=== PATIENT | female | born 1970 | race Caucasian/White ===

== ENCOUNTER → 2017-12-18 12:07 | Outpatient (CLI) | payer OTHER, SELFPAY ==
--- NOTE | 2017-12-18 11:16 | BI_ITS ---
MAMMOGRAPHY - BILATERAL SCREENING REASON FOR EXAM: Female, 47 years old. Routine annual screening examination. PERTINENT HISTORY: FAM HX 2 MAT AUNTS AGES 50S, MOTHER AGE 72 OPEN HEART SX AGE 27 P/H MASTITIS 14 YRS AGO LT BREAST TECHNIQUE: Digital bilateral breast girish (3D mammographic acquisition) in the CC and MLO projections. 2-D mediolateral oblique (MLO) and craniocaudad (CC) views of both breasts were obtained. CAD: Full Field Digital Mammography with Computer Added Detection was performed. COMPARISON: 11/29/2016, 11/20/2015, 11/07/2014 FINDINGS: Breast Composition: The breasts are heterogeneously dense, which may obscure small masses. There are no dominant masses or suspicious calcifications. No other significant abnormalities are identified. BI/SCREENING MAMM (CAD), BILAT IMPRESSION: Stable bilateral screening mammogram. Yearly follow-up mammogram recommended. (A) ASSESSMENT CATEGORY: BIRADS Category 2: Benign. A letter regarding these results will be sent to the patient by the facility within 30 days. Approximately 10% of breast cancers are not detected by mammography. A normal mammogram should not delay biopsy of a clinically suspicious abnormality. [id number] Electronically Signed: Qiana Caicedo MD at 13:45 EDT Tel , Service support ,
--- NOTE | 2017-12-18 12:07 | DT_ITS ---
This patient was seen during an EMR downtime December 14, 2017 - December 21, 2017. This patient may have a combination of paper and electronic documentation or all paper documentation. All documentation is viewable within the e-chart portion of [email or web address] for each patient visit.
== END ==
PROVIDERS: PCP Internal Medicine; Visit Provider Internal Medicine
DX: Z12.31 Encounter for screening mammogram for malignant neoplasm of breast (principal)
CPT/HCPCS: 77063; 77067

== ENCOUNTER → 2018-06-01 11:30 | Outpatient (CLI) | payer OTHER, SELFPAY ==
[2018-06-04 08:37] LABS: HPV Reflexed? NOT INDICATED
== END ==
PROVIDERS: Family Provider Internal Medicine; PCP Internal Medicine; Referring Provider Obstetrics & Gynecology; Visit Provider Obstetrics & Gynecology
DX: Z12.4 Encounter for screening for malignant neoplasm of cervix (principal)
CPT/HCPCS: 88175; G0145

== ENCOUNTER → 2018-10-19 | Outpatient (CLI) | payer OTHER, SELFPAY ==
--- NOTE | 2018-10-19 13:01 | RAD_ITS ---
STUDY: X-RAY - RIGHT ELBOW REASON FOR EXAM: Female, 48 years old. Increasing elbow pain. Possible tendinitis. TECHNIQUE: 3 view(s) of the elbow. COMPARISON: None. FINDINGS: Normal visualized humerus, radius and ulna. Normal radiocapitellar and ulnotrochlear articulations. The soft tissue structures are unremarkable. RAD/Elbow min 3 Views IMPRESSION: Normal x-ray examination of the elbow. Electronically Signed: Alexei Joya, at 13:06 EDT , Service support ,
== END | disposition home or self-care (01) ==
LOC: HPRAD 13:01
PROVIDERS: Family Provider Internal Medicine; PCP Internal Medicine; Referring Provider Orthopaedic Surgery; Visit Provider Orthopaedic Surgery
DX: M25.521 Pain in right elbow (principal)
CPT/HCPCS: 73080

== ENCOUNTER → 2018-12-31 | Outpatient (CLI) | payer OTHER, SELFPAY ==
--- NOTE | 2018-12-31 11:04 | BI_ITS ---
MAMMOGRAPHY - BILATERAL SCREENING 3-D TOMOSYNTHESIS REASON FOR EXAM: Female, 48 years old. Bilateral Screening 3-D tomosynthesis PERTINENT HISTORY: No significant family history. TECHNIQUE: 2-D mammograms and 3-D Tomosynthesis of the breast (s) were performed. CAD was performed. COMPARISON: Was made to the previous examinations the largest is dated December 18, 2017. FINDINGS: The breast composition is of scattered fibroglandular tissue. No evidence of spiculated lesion, microcalcifications, skin thickening or nipple retraction. Multiple benign-appearing lymph nodes in the axillary areas bilaterally. There has been no significant change since the prior study. BI/SCREEN MAMM (CAD) W/JOSUE BILAT IMPRESSION: No mammographic signs of malignancy. Routine yearly mammograms recommended. ASSESSMENT CATEGORY: BIRADS Category 1: Negative. A letter regarding these results will be sent to the patient by the facility within 30 days. FOLLOW UP RECOMMENDATION: Yearly follow up mammogram recommended. (A) Approximately 10% of breast cancers are not detected by mammography. A normal mammogram should not delay biopsy of a clinically suspicious abnormality. Electronically Signed: Flor Aguilar, at 16:19 EDT Tel , Service support ,
== END | disposition home or self-care (01) ==
LOC: OPBI 11:03
PROVIDERS: Family Provider Internal Medicine; PCP Internal Medicine; Referring Provider Internal Medicine; Visit Provider Internal Medicine
DX: Z12.31 Encounter for screening mammogram for malignant neoplasm of breast (principal)
CPT/HCPCS: 77063; 77067

== ENCOUNTER → 2019-04-22 09:38 | Outpatient (CLI) | payer OTHER, SELFPAY ==
--- NOTE | 2019-04-22 09:39 | RAD_ITS ---
STUDY: X-RAY - RIGHT WRIST REASON FOR EXAM: Female, 48 years old. Wrist injury. Pain. TECHNIQUE: 3 view(s) of the wrist were obtained. COMPARISON: February 06, 2015 FINDINGS: Stable mild generalized osteopenia. Deformity of the distal radius and prior ulnar styloid fracture, unchanged. Mild loss of articular cartilage of the radiocarpal articulation. Normal distal radioulnar articulation. Normal carpal bones. Stable loss of articular cartilage of the radial carpal row. Osteoarthrosis of the first CMC joint, slightly progressed since the prior study. Normal second through fifth carpometacarpal articulations. Normal visualized metacarpal bones. The soft tissue structures are unremarkable. RAD/Wrist min 3 Views IMPRESSION: Osteopenia with healed distal radial and ulnar abnormalities unchanged. Osteoarthrosis as described. Electronically Signed: Jose Francisco Lynne MD at 12:11 EDT , Service support ,
== END ==
PROVIDERS: Family Provider Internal Medicine; PCP Internal Medicine; Referring Provider Orthopaedic Surgery; Visit Provider Orthopaedic Surgery
DX: M25.531 Pain in right wrist (principal)
CPT/HCPCS: 73110

== ENCOUNTER → 2019-04-27 07:29 | Outpatient (CLI) | payer OTHER, SELFPAY ==
--- NOTE | 2019-04-27 07:32 | MRI_ITS ---
STUDY: MRI RIGHT ELBOW REASON FOR EXAM: Right elbow and forearm pain for about a year. TECHNIQUE: Standardized fat and water weighted pulse sequences were obtained in all 3 orthogonal planes. COMPARISON: Radiographs 10/19/2018. FINDINGS: Normal radio-capitellum articulation. Normal radial collateral ligamentous complex. There is peritendinitis, tendinosis and undersurface partial tear of the common extensor tendon measuring approximately 1 cm in length (inversion recovery coronal images 12, 13). Normal ulnotrochlear articulation. Normal ulnar collateral ligamentous complex. Normal common flexor tendon. The cubital tunnel is normal, with a normal ulnar nerve. Normal biceps tendon and distal insertion. Normal lacertus fibrosis. Normal brachialis musculotendinous insertion. Normal triceps tendon and teno-osseous insertion. Normal olecranon process. The visualized distal humerus, proximal radius, and ulna are normal. The visualized muscles of the distal arm and proximal forearm are normal. There is edema in the radial subcutis adipose space. MRI/Upper Ext Joint Only(Routine) IMPRESSION: Lateral epicondylitis with undersurface partial tear of the common extensor tendon. Electronically Signed: Real Bui MD at 9:10 EDT Tel , Service support ,
== END ==
PROVIDERS: Family Provider Internal Medicine; PCP Internal Medicine; Referring Provider Orthopaedic Surgery; Visit Provider Orthopaedic Surgery
DX: M77.11 Lateral epicondylitis, right elbow (principal)
CPT/HCPCS: 73221

== ENCOUNTER 2019-05-27 06:21 | Day surgery (SDC) | payer OTHER, SELFPAY ==
--- NOTE | 2019-05-17 12:57 | HP_ITS ---
Intake Intake Visit Reasons: Right Arm Allergies No Known Allergies Allergy (Verified 11/17/15 08:21) Medications traZODone [Desyrel] 50 mg PO QHS 07/27/13 [History Confirmed 05/17/19] Metronidazole [Metrocream] 45 gm TP DAILY 07/04/15 [History Confirmed 05/17/19] Restasis Ophthalmic 1 drp EACH EYE BID 07/04/15 [History Confirmed 05/17/19] PFSH Social History (Updated 05/17/19 @ 12:57 by Marily Cavazos DO) Smoking Status: Never smoker HPI Right Arm: Surgical H&P: Yes Details: Parts of this documentation were recorded by a scribe, this documentation accurately reflects the service provided and the decisions made by me, Marily Cavazos DO 05/17/19 1049. JESUS UMANZOR is a 48 year old F here today for right tennis elbow. Patient states that she wishes to have surgery today for her right tennis elbow. Denies numbness, tingling or other associated symptoms. Denies any changes in medications. pain localized to lateral elbow worse iwth extending wrist, was better with injections, now getting worse with adls. otc nsaids as needed. ROS Musc Reports as per HPI Skin/Breast Reports system reviewed and no additional complaints, except as docu, Reports as per [facility] Neuro Yes system reviewed and no additional complaints, except as docu Ortho Exam Right Elbow ROM: Yes Flexion 0-140 Test: Yes TTP Medial Epicondyle, Yes Pain w/ resist wrist ext, Yes Pain w/ resist 3rd dig ext Sensation: Radial: I, Ulnar: I, Median: I Motor: Elbow Extension: 5, Elbow Flexion: 5, EPL: 5, FDP-2: 5, 1st Dorsal Interosseous: 5 Assessment & Plan Problems 1. Right lateral epicondylitis M77.11 Plan Reviewed the pre-operative plans with the patient. Risks and benefits of the procedure were fully explained, including but not limited to infection, neurovascular injury, continued pain, arthritis, stiffness, need for further surgery, re-injury, DVT, PE, general risks of anesthesia, and loss of limb or life. The patient understands all the risks and does wish to proceed with written consent. Discussed possible post op restrictions and limitations based on the depth of surgery. Follow up post op or sooner if pain, swelling, numbness or associated symptoms, or concerns develop. All questions answered. Patient in agreement of plan. Coding Level of Care Code Off vis,est,level 4 Diagnoses Right lateral epicondylitis M77.11 05/17/19 1257 <Electronically signed by Marily sanchez DO> Date _ Marily Cavazos DO
[2019-05-27] VITALS (10 sets, daily range): BP systolic 97–138; BP diastolic 53–85; PULSE 59–72; RESP 14–16; TEMP 36.2–37.5; O2SAT 96–100; BMI 22.1
[2019-05-27] MEDS: Lactated Ringers 1,000 ML 100 ML IV ×2 (06:47→07:48)
--- NOTE | 2019-05-27 06:52 | PCM.HP.STD ---
Problem List (1) Screening for intestinal cancer Status: Acute History of Present Illness Date of Admission: 05/27/19 The patient is a 48 year old F who presents for a screening colonoscopy. He has never had a previous colonoscopy. She states that a paternal grandfather had colon cancer in his 70s. She thinks that both of her parents have have colon polyps. Her only surgery was an ASD repair at approximately age 25. She otherwise enjoys good health. She denies bright red blood per rectum or melena. No abdominal pain. No weight change. She has had no history of DVT. She does have a history of getting nauseated with narcotics. She states that if she is pretreated with a scopolamine patch and Zofran that she previously performed well with a NovaSure procedure. Past Medical History Allergies No Known Allergies Allergy (Verified 05/26/19 09:52) Home Medications: Ambulatory Orders Medication Instructions Recorded traZODone [Desyrel] 50 mg PO QHS 07/27/13 Metronidazole [Metrocream] 45 gm TP DAILY 07/04/15 Restasis Ophthalmic 1 drp EACH EYE BID 07/04/15 Smoking Status: Never smoker Tobacco Use: Non-smoker Review of Systems Constitutional: Denies: Anorexia Cardiovascular: Denies: Chest Pain Respiratory: Denies: Cough Gastrointestinal: Denies: Abdominal Pain VTE Information - Inpt Only VTE Present on Admission: No Patient Problems: Active and Suspected Problems Screening for intestinal cancer (Acute) - Physical Exam Vitals/I&O's: Vital Signs Temp Pulse Resp BP Pulse Ox 97.7 F L 70 16 120/60 96 05/27/19 06:38 05/27/19 06:38 05/27/19 06:38 05/27/19 06:38 05/27/19 06:38 Oxygen Delivery Method Room Air Weight: 137 lb 9.6 oz Body Mass Index (BMI) 22.1 General: Alert, Oriented x3, Cooperative, No apparent distress HEENT: Atraumatic Oral: Moist Mucosa Lungs: Clear to auscultation, Normal air movement Cardiovascular: Regular rate, Regular Rhythm Abdomen: Bowel Sounds Present, Soft, Non Tender Extremities: No Calf Tenderness Psych/Mental Status: Normal Affect Current Medications Lactated Ringer's () 1,000 mls @ 100 mls/hr IV .Q10H ONE Stop: 05/27/19 16:49 Assessment/Plan All Active Problems Screening for intestinal cancer (Acute) The patient presents via open access program to proceed with a screening colonoscopy with possible biopsy or polypectomy is indicated. She is aware of the technique, benefits, risks, alternatives. We will proceed as noted. We will try to provide anti-medic medication pre-intervention. Stephan Garcia M.D., F.A.C.S.
[2019-05-27] MEDS: Scopolamine 1mg/72hr Patch 1 PATCH TD (07:15)
--- NOTE | 2019-05-27 07:39 | OP.COLON_ITS ---
Patient Name: Lauryn Armando Procedure Date: 05/27/2019 6:55 AM Date of : 1970 Age: 48 Procedure: Colonoscopy Indications: Screening for colorectal malignant neoplasm Providers: Stephan Garcia MD Referring MD: Carole Pettit Medicines: Midazolam 6.5 mg IV, Meperidine 50 mg IV, Ondansetron 4 mg IV, Diphenhydramine 50 mg IV, scopolamine patch Patient Profile: Last Colonoscopy: none. The patient's first colonoscopy is today. Complications: No immediate complications. Procedure: Pre-Anesthesia Assessment: - Prior to the procedure, a History and Physical was performed, and patient medications and allergies were reviewed. The patient's tolerance of previous anesthesia was also reviewed. The risks and benefits of the procedure and the sedation options and risks were discussed with the patient. All questions were answered, and informed consent was obtained. Prior Anticoagulants: The patient has taken no previous anticoagulant or antiplatelet agents. ASA Grade Assessment: II - A patient with mild systemic disease. After reviewing the risks and benefits, the patient was deemed in satisfactory condition to undergo the procedure. After I obtained informed consent, the scope was passed under direct vision. Throughout the procedure, the patient's blood pressure, pulse, and oxygen saturations were monitored continuously. The Colonoscope was introduced through the anus and advanced to the cecum, identified by appendiceal orifice and ileocecal valve. The colonoscopy was unusually difficult due to a tortuous colon. Successful completion of the procedure was aided by increasing the dose of sedation medication. The patient tolerated the procedure well. The quality of the bowel preparation was excellent. The ileocecal valve was photographed. Moderate Sedation: Moderate (conscious) sedation was personally administered by the endoscopist. The following parameters were monitored: oxygen saturation, heart rate, blood pressure, and response to care. Total physician intraservice time was 17 minutes. Scope In: 7:10:00 AM Scope Withdrawal Time 0 hours 8 minutes 16 seconds Scope Out: 7:34:07 AM Total Procedure Duration Time 0 hours 24 minutes 7 seconds Findings: The perianal and digital rectal examinations were normal. The colon (entire examined portion) was significantly tortuous. Advancing the scope required changing the patient to a supine position and using manual pressure. The exam was otherwise without abnormality. Impression: - Tortuous colon. - The examination was otherwise normal. - No specimens collected. Recommendation: - Discharge patient to home. - Resume previous diet. - Continue present medications. - Repeat colonoscopy in 10 years for screening purposes. Procedure Code(s): --- Professional --- 17330, Colonoscopy, flexible; diagnostic, including collection of specimen(s) by brushing or washing, when performed (separate procedure) 05351, 59, Moderate sedation services provided by the same physician or other qualified health home health care coordinator performing the diagnostic or therapeutic service that the sedation supports, requiring the presence of an independent trained observer to assist in the monitoring of the patient's level of consciousness and physiological status; initial 15 minutes of intraservice time, patient age 5 years or older Diagnosis Code(s): --- Professional --- Z12.11, Encounter for screening for malignant neoplasm of colon Q43.8, Other specified congenital malformations of intestine CPT copyright 2017 [employer]. All rights reserved. The codes documented in this report are preliminary and upon high school foreign language tutor review may be revised to meet current compliance requirements. Stephan Garcia MD 05/27/2019 7:39:23 AM This report has been signed electronically. Number of Addenda: 0 Note Initiated On: 05/27/2019 6:55 AM
== END 2019-05-27 08:51 | disposition home or self-care (01) ==
LOC: EN 06:22 → AC 06:23
PROVIDERS: Family Provider Internal Medicine; PCP Internal Medicine; Referring Provider Internal Medicine; Visit Provider Surgery
PROC: 0DJD8ZZ Inspection of Lower Intestinal Tract, Via Natural or Artificial Opening Endoscopic (ICD-10-PCS; CPT 45378; principal; 2019-05-27 06:55)
DX: Z12.11 Encounter for screening for malignant neoplasm of colon (principal); Q43.8 Other specified congenital malformations of intestine; Z80.0 Family history of malignant neoplasm of digestive organs
CPT/HCPCS: 45378; 99152; 99153; J7120; J2405

== ENCOUNTER 2019-06-15 12:08 | Day surgery (SDC) | payer OTHER, SELFPAY ==
--- NOTE | 2019-05-17 12:57 | HP_ITS ---
I have re-examined the patient. There are no clinical changes since date of exam. Intake Intake Visit Reasons: Right Arm Allergies No Known Allergies Allergy (Verified 11/17/15 08:21) Medications traZODone [Desyrel] 50 mg PO QHS 07/27/13 [History Confirmed 05/17/19] Metronidazole [Metrocream] 45 gm TP DAILY 07/04/15 [History Confirmed 05/17/19] Restasis Ophthalmic 1 drp EACH EYE BID 07/04/15 [History Confirmed 05/17/19] PFSH Social History (Updated 05/17/19 @ 12:57 by Marily Cavazos DO) Smoking Status: Never smoker HPI Right Arm: Surgical H&P: Yes Details: Parts of this documentation were recorded by a scribe, this documentation accurately reflects the service provided and the decisions made by me, Marily Cavazos DO 05/17/19 1049. JESUS UMANZOR is a 48 year old F here today for right tennis elbow. Patient states that she wishes to have surgery today for her right tennis elbow. Denies numbness, tingling or other associated symptoms. Denies any changes in medications. pain localized to lateral elbow worse iwth extending wrist, was better with injections, now getting worse with adls. otc nsaids as needed. ROS Musc Reports as per [facility] Skin/Breast Reports system reviewed and no additional complaints, except as docu, Reports as per [facility] Neuro Yes system reviewed and no additional complaints, except as docu Ortho Exam Right Elbow ROM: Yes Flexion 0-140 Test: Yes TTP Medial Epicondyle, Yes Pain w/ resist wrist ext, Yes Pain w/ resist 3rd dig ext Sensation: Radial: I, Ulnar: I, Median: I Motor: Elbow Extension: 5, Elbow Flexion: 5, EPL: 5, FDP-2: 5, 1st Dorsal Interosseous: 5 No rales rhonchi wheezing, no about abdominal pain, no audible bruits Assessment & Plan Problems 1. Right lateral epicondylitis M77.11 Plan Reviewed the pre-operative plans with the patient. Risks and benefits of the procedure were fully explained, including but not limited to infection, neurovascular injury, continued pain, arthritis, stiffness, need for further surgery, re-injury, DVT, PE, general risks of anesthesia, and loss of limb or life. The patient understands all the risks and does wish to proceed with written consent. Discussed possible post op restrictions and limitations based on the depth of surgery. Follow up post op or sooner if pain, swelling, numbness or associated symptoms, or concerns develop. All questions answered. Patient in agreement of plan. Coding Level of Care Code Off vis,est,level 4 Diagnoses Right lateral epicondylitis M77.11 05/17/19 1257 <Electronically signed by Marily sanchez DO> Date _ Marily Cavazos DO
[2019-05-27 06:38] VITALS: BMI 22.1
[2019-06-15 12:29] VITALS: BP 109/64; PULSE 72; RESP 16; TEMP 36.7; O2SAT 98; BMI 22.2
[2019-06-15] MEDS: Lactated Ringers 1,000 ML 100 ML IV (12:52)
--- NOTE | 2019-06-15 13:20 | TESH_PTH ---
PATIENT: JESUS UMANZOR LOC: [facility] [place] U#:[id number] AGE/SX: 48/F ROOM: RE06/15/[address]: Dr. Marily Cavazos DO : 1970 BED: DIS: 06/15/2019 SPEC #: [id number] RECD: 06/16/19 08:36 STATUS: RAFFAELE BETHANY #: [id number] GAGE: 06/15/19 13:[address]: Marily Cavazos DEPT: SURGICAL PATHOLOGY RECD BY: Ruddy Alves ENTERED: 06/16/19 10:42 SP TYPE: TENDON OTHR DR: Dr. Carole Pettit, Tissues: Tendon and tendon sheath, NOS Procedures: Surgery Specimen Level III HEADER OPERATION: Release, lateral epicondyle, ECRB repair PRE-OP DIAGNOSIS: Right lateral epicondylitis M77.11 TISSUE SUBMITTED: ECRB tendon, right MICROSCOPIC DIAGNOSIS ECRB tendon, right: Fragments of dense fibroconnective tissue with reactive changes. SJ:leon 06/17/19 MICROSCOPIC DESCRIPTION Slides are reviewed. GROSS DESCRIPTION Received in fixative is one container labeled with the patient's name and designated right tendon. The specimen consists of multiple irregular fragments of light martinez tissue submitted on bluish stained gauze. The specimen in aggregate measures 1 x 0.5 x 0.1 cm. The specimen is totally submitted in one cassette. / AM:leon 06/16/19 TC:5 CPT: 57567
--- NOTE | 2019-06-15 15:44 | DCINST_ITS ---
Discharge Diet: No Restrictions - Leave dressing intact, follow-up in 2 weeks for dressing removal and initiation of physical therapy occupational therapy if necessary, take prescriptions as indicated, call with increased pain numbness tingling or further issues arise Discharge Activity: May Not Drive May shower in (days): 1 Ice area for (Minutes): 20 - Every hour while awake. Weight Bearing Status: Weight bearing as tolerated Keep extremity elevated above heart level: Operative Extremity Call your doctor if your incision/area has: Continuous Slow Oozing, Sudden Increased Bleeding, Increased Pain/ Swelling, Increased Redness, Foul Smelling Discharge Call your doctor if you observe: Fever of 101 or Higher, Coldness, Increased Pain, Numbness or Tingling, Change in Color, Calf discomfort Allergies/Adverse Reactions: Allergies No Known Allergies Allergy (Verified 05/26/19 09:52) Medications to take at Discharge traZODone [Desyrel] 50 mg PO QHS 07/27/13 Metronidazole [Metrocream] 45 gm TP DAILY 07/04/15 Restasis Ophthalmic 1 drp EACH EYE BID 07/04/15 Primary Care Physician: Carole Pettit DO [Primary Care Provider] - Test Results: Test results from this visit will be discussed in further detail at your follow- up appointment, if applicable. Please Follow Up With: Marily Cavazos DO - [phone]
--- NOTE | 2019-06-15 15:44 | PCM.OPRPT ---
Report of Operation Date of Procedure: 06/15/19 Pre-Operative Diagnosis: right lateral epicondylitis Post-Operative Diagnosis: same Surgery/Procedure Performed:: right lateral epicondylar debridement/ecrb repair Type of Anesthesia:: General Anesthesiologist: Jaya Dai Estimated Blood Loss (mL): min Fluids Replaced: 800cc lr Description of Procedure: Preop note Patient is a 48-year-old female well-known to me in clinic. Patient has continued right lateral elbow pain and is recalcitrant to conservative treatment. MRI confirms a high-grade partial tear of her extensor tendons. Risk benefits alternatives surgery discussed with patient. Risk including but not limited to blood loss, blood clot, infection, neurovascular, failure procedure, loss of life and loss of limb. Patient is aware like proceed with right lateral epicondyle debridement possible ECRB repair. Operative note Patient seen and examined preop holding area. Right elbow was marked. Patient brought to the operating placed supine the operating table. Signed, anesthesia, antibiotics were administered the right arm was prepped and draped in usual sterile fashion with tract around her upper arm. All bony prominences well-padded SCDs placed on her left bilateral lower extremity. We then marked our incision right over the lateral epicondyle in an oblique fashion. Right arm is an elevated segmented tourniquet which it was rates her pressure of 250 torr. Timeout was performed. We then used a 15 blade to cut the skin dissected down to the sternum to the extensor tendon mass we split the ECU and ECRL tendons longitudinally dissected down into the ECRB underneath which was grayish in color we removed part of the ECRB tendon and sent it to pathology for further evaluation. We also debrided more tendon around the area that was grayish we then palpated the lateral condyle multiple times throughout the case as well as the radial head to ensure that we did not approach to far distally. All neurovascular structures were protected at all times. We then rasped the lateral epicondyle used 4 5 K wire to bleed and into drill into the bone for bleeding and then placed a knotless fiber tack Arthrex and then oversewed the tendon down to bone in standard technique. We then irrigated the incision with copious muscle sterile saline. We oversew the repair with 2-0 Vicryl subcutaneous tissue with 3-0 Vicryl and skin with 3-0 Vicryl and a running 4-0 Monocryl. Sterile dressings and a posterior splint at 90 degrees were applied. Patient tolerated procedure well no complication transferred recovery room in stable con condition Postoperative Nonweightbearing right upper extremity Call with increased pain numbness tingling further issues arise Follow-up in 2 weeks This note was generated with [employer] dictation software. It may contain incorrect words, spelling, and punctuation that were not noted in checking the note before signing. Grafts/Implants Used: Arthrex fiber tack
[2019-06-15] MEDS: Cefazolin 2 GM in 0.9% Normal Saline 100 ML IV (16:10)
[2019-06-15] MEDS: Mupirocin Ointment 22gm Tube 1 APPLIC (17:00)
[2019-06-15] MEDS: Bupivacaine Mpf 0.5% 30 ML VIAL (17:18)
[2019-06-15 17:36] VITALS: BP 109/64; BP 148/81; PULSE 62; RESP 16; TEMP 36.8; O2SAT 99
[2019-06-15 17:45] VITALS: BP 109/64; BP 139/72; PULSE 60; RESP 16; O2SAT 100
[2019-06-15 18:00] VITALS: BP 109/64; BP 155/86; PULSE 60; RESP 16; O2SAT 98
[2019-06-15 18:05] VITALS: BP 109/64; BP 143/80; PULSE 55; RESP 16; TEMP 37; O2SAT 100
[2019-06-15 19:10] VITALS: BP 109/64
== END 2019-06-15 19:22 | disposition home or self-care (01) ==
LOC: SDC 12:09 → AC 12:10
PROVIDERS: Family Provider Internal Medicine; PCP Internal Medicine; Referring Provider Orthopaedic Surgery; Visit Provider Orthopaedic Surgery
PROC: (CPT 24357; principal; 2019-06-15 13:05)
DX: M77.11 Lateral epicondylitis, right elbow (principal); Z85.828 Personal history of other malignant neoplasm of skin
CPT/HCPCS: 01710; 24357; 88304; C1713; J7120; J2405

== ENCOUNTER → 2019-06-20 13:51 | Outpatient (CLI) | payer OTHER, SELFPAY ==
[2019-06-15 12:29] VITALS: BMI 22.2
[2019-06-23 12:07] LABS: Age Gdln ACOG Testing 30-65 (.)
[2019-06-23 15:46] LABS: HPV APTIMA, High Risk Negative (Negative); HPV Reflexed? NOT INDICATED
== END ==
PROVIDERS: Visit Provider Obstetrics & Gynecology
DX: Z12.4 Encounter for screening for malignant neoplasm of cervix (principal)
CPT/HCPCS: 88175; G0145

== ENCOUNTER 2019-08-22 17:00 | Outpatient (RCR) | payer OTHER, SELFPAY ==
[2019-07-26 10:24] VITALS: BMI 22.2
--- NOTE | 2019-08-03 09:12 | HP.OTEVAL ---
Patient's Visit Information JESUS UMANZOR is a 48 year old F, referred to Occupational Therapy by Marily Cavazos DO, with a diagnosis of right lateral epi. Date of Evaluation: 08/02/19 Occupational Therapist: Anyi Oreilly, TAMIA/Izabella, CHT - Subjective Subjective: This 48 year old female was seen for OT eval with dx of right lateral epi. Pt is 6 week post op right lateral epicondylar debridement/ecrb repair. States that she is still having pain with writing and using the computer. She has the pain over her lateral epicondyle. She has been working on some light ROM but is still limited with full elbow ext. Pt reports she does workout but has been careful not to irritate her elbow. pt is unsure is she was limited prior to sx because of her dx before sx. - ADLs Miscellaneous: Write, Use computer keyboard Comments: use mouse - Pain right UE 0 Pain Intensity Range: 3 - ROM Elbow: right -20/ 145 left 0/145 Forearm: right/left WNL - Strength Auto Glass Worker: right 45# left 60# right elbow ext 5# left 65# Lateral Pinch: right 12# left 12# no pain Tripod Pinch: right 12# left 12# no pain Strength Comments: right elbow pain with resistive exceptional student education teacher strenght with shoulder at 90 and elbow ext. pt reports pain is mostly with grabbing something in front of her (reaching out) and typing. - Sensation Sensation Comments: denies - Quick DASH-Disab of Arm,Shoulder& Hand Quick DASH Score: 40.0000 - Tennis Elbow Tennis Elbow Score: 50 - Goals Goal:100% adherence to protocol: Yes Comment: lateral epicondylar debridement/ecrb repair protocol Goal:Daily scar massage when approriate: Yes Goal:ROM equal to unaffected hand: Yes Goal:Auto Glass Worker/Pinch strength at least 75% of unaffected hand: Yes Goal:No pain with affected hand use: Yes Goal:Full use of affected hand in daily activities including: Yes Goal:Decrease scar hypersensitivity: Yes - Rehabilitation General Assessment: Pt is 6 week post op right lateral epicondylar debridement/ecrb repair, demo limited ROM and strength decreasing her IND with ADLS and IADLS. Pt would benefit from skilled OT services 1x week for 3 weeks to return pt to PLOF. Today therapist ed. pt on PROM to gain increase in elbow ext., scar mtg and desensitization, exercise erog. work station ergo. Therapist provided ex. handout pt demo understanding and agree to POC. Rehabilitation Potential: Good - Anticipated Interventions Anticipated Interventions: A/AAROM/PROM, Strengthening, Scar Care, Triggerpoint Release, Desensitization, Modalities, Joint Protection/Energy Conservation, Ergonomic Education - Visit Plan Frequency: 1x/Week Duration: 3 Weeks TEXT: Thank you for the opportunity to evaluate your patient. For Medicare and Medicare HMO plans, please review the plan of care and approve it. It will need to be FAXED BACK to us at [phone] for Medicare purposes. Please let me know if there are questions or concerns regarding this plan of care. Physician Signature: Date:
--- NOTE | 2019-11-19 09:19 | HP.OTDCSUM ---
It has been my pleasure to treat JESUS UMANZOR under orders from Dr. Marily Cavazos DO, for the diagnosis of right lateral epi for a total of 4 visit(s). Please see the following information for a summary of their discharge status. % Improvement: 80 Objective/Function: pt was seen for elbow ext -10. pt demo with full flex- states pulling around incision but nothing intolerable- Therapist ed. pt on lifting ergonomics to prevent strain on elbow- pt demo understanding and returned to her exercises. pt was reporting IND. with ADLs and IADLs. pt was last seen 08/22/19 and due to time lapse in services pt is D/C at this time. Patient Goals: Regain Mobility, Regain Strength, Decrease Pain Goal:100% adherence to protocol: Yes Goal:Daily scar massage when approriate: Yes Goal:ROM equal to unaffected hand: Yes Goal:Coordinator Integrated Marketing/Pinch strength at least 75% of unaffected hand: Yes Goal:No pain with affected hand use: Yes Goal:Full use of affected hand in daily activities including: Yes Goal:Decrease scar hypersensitivity: Yes Plan: cont with US- PLLS and end range stretch If there are questions or concerns regarding this patient's occupational therapy, please fell free to call me at [phone]. Thank you for the referral of this patient. Sincerely, Anyi Oreilly, OTR/L, CHT
== END 2019-08-22 19:00 | disposition home or self-care (01) ==
LOC: OT 17:00
PROVIDERS: Referring Provider Orthopaedic Surgery; Visit Provider Orthopaedic Surgery
DX: Z98.890 Other specified postprocedural states (principal)
CPT/HCPCS: 97035; 97110; 97140; 97165; 97166

== ENCOUNTER → 2020-01-23 11:05 | Outpatient (CLI) | payer OTHER, SELFPAY ==
[2019-07-26 10:24] VITALS: BMI 22.2
--- NOTE | 2020-01-23 11:08 | BI_ITS ---
MAMMOGRAPHY - BILATERAL SCREENING REASON FOR EXAM: Female, 49 years old. Routine annual screening examination. PERTINENT HISTORY: Mother with breast cancer. Aunts with breast cancer. TECHNIQUE: Digital bilateral breast josue (3D mammographic acquisition) in the CC and MLO projections. 2-D mediolateral oblique (MLO) and craniocaudad (CC) views of both breasts were obtained. CAD: Full Field Digital Mammography with Computer Added Detection was performed. COMPARISON: Comparison is made with prior study dated December 31, 2018 and December 18, 2017. FINDINGS: Breast Composition: The breasts are heterogeneously dense, which may obscure small masses. There are no dominant masses or suspicious calcifications. Stable small benign-appearing bilateral axillary lymph. No other significant abnormalities are identified. There has been no significant change since the prior study. BI/SCREEN MAMM (CAD) W/JOSUE BILAT IMPRESSION: Stable bilateral screening mammogram. Yearly follow-up mammogram recommended. (A) ASSESSMENT CATEGORY: BIRADS Category 2: Benign. A letter regarding these results will be sent to the patient by the facility within 30 days. Approximately 10% of breast cancers are not detected by mammography. A normal mammogram should not delay biopsy of a clinically suspicious abnormality. [id number] Electronically Signed: Alexei Joya, at 12:09 EDT , Service support ,
== END ==
PROVIDERS: PCP Internal Medicine; Referring Provider Internal Medicine; Visit Provider Internal Medicine
DX: Z12.31 Encounter for screening mammogram for malignant neoplasm of breast (principal)
CPT/HCPCS: 77063; 77067

== ENCOUNTER → 2020-06-26 | Outpatient (CLI) | payer OTHER, SELFPAY ==
[2019-07-26 10:24] VITALS: BMI 22.2
[2020-06-28 10:51] LABS: HPV Reflexed? NOT INDICATED
== END | disposition home or self-care (01) ==
LOC: LABSPEC 13:09
PROVIDERS: PCP Internal Medicine; Visit Provider Student in an Organized Health Care Education/Training Program
DX: Z12.4 Encounter for screening for malignant neoplasm of cervix (principal)
CPT/HCPCS: 88175; G0145

== ENCOUNTER 2020-07-10 10:45 | Outpatient (RCR) | payer OTHER, SELFPAY ==
[2019-07-26 10:24] VITALS: BMI 22.2
--- NOTE | 2019-08-24 06:51 | MASS.EVAL ---
Massage Therapy Evaluation: Initial Evaluation Date: 08/23/2019 /Age: 02 1970, 49 Diagnosis: Neck muscle strain Goals: Decrease pain and tension through neck and shoulders Improve sleep Assessment: Lauryn is a good candidate for massage at this time. We have had success treating her symptoms in the past. Plan: To be seen one time per month or PRN for a total of 10 one hour sessions.
--- NOTE | 2020-07-10 18:49 | MASS.DISCH ---
Massage Therapy Discharge Summary: Discharge Date: 07/10/2020 Lauryn was seen for a massotherapy evaluation on 08/23/2019 with the diagnosis of neck muscle strain. She was treated with seven sessions of massage therapy consisting of deep pressure soft tissue techniques, myofascial release and trigger point compression to her cervical, thoracic, lower back, lower extremities and hips. Lauryn responded well to the therapy by reporting decreased tension and pain throughout her neck, shoulders, lower back and hips. Her goals for therapy were met throughout the treatment sessions. At this time this patient is being discharged from our care at [facility] facility.
== END 2020-07-10 19:00 | disposition home or self-care (01) ==
LOC: MASS 10:45
PROVIDERS: Referring Provider Internal Medicine; Visit Provider Internal Medicine
DX: S16.1XXD Strain of muscle, fascia and tendon at neck level, subsequent encounter (principal)
CPT/HCPCS: 97124

== ENCOUNTER → 2021-02-12 11:42 | Outpatient (CLI) | payer OTHER, SELFPAY ==
[2019-07-26 10:24] VITALS: BMI 22.2
--- NOTE | 2021-02-12 11:45 | BI_ITS ---
MAMMOGRAPHY - BILATERAL SCREENING REASON FOR EXAM: Female, 50 years old. Routine annual screening examination. PERTINENT HISTORY: TECHNIQUE: Digital bilateral breast josue (3D mammographic acquisition) in the CC and MLO projections. 2-D mediolateral oblique (MLO) and craniocaudad (CC) views of both breasts were obtained. CAD: Full Field Digital Mammography with Computer Added Detection was performed. COMPARISON: None. FINDINGS: Breast Composition: Scattered breast parenchyma is identified There are no dominant masses or suspicious calcifications. No other significant abnormalities are identified. BI/SCRN MAMM (CAD)W/JOSUE BILAT IMPRESSION: Stable bilateral screening mammogram. Yearly follow-up mammogram recommended. (A) ASSESSMENT CATEGORY: BIRADS Category 1: Negative. A letter regarding these results will be sent to the patient by the facility within 30 days. Approximately 10% of breast cancers are not detected by mammography. A normal mammogram should not delay biopsy of a clinically suspicious abnormality. [id number] Electronically Signed: Star Nichols DO at 13:55 EDT Tel , Service support ,
== END ==
PROVIDERS: PCP Internal Medicine; Referring Provider Internal Medicine; Visit Provider Internal Medicine
DX: Z12.31 Encounter for screening mammogram for malignant neoplasm of breast (principal)
CPT/HCPCS: 77063; 77067

== ENCOUNTER → 2021-04-09 12:28 | Outpatient (CLI) | payer OTHER, SELFPAY ==
[2021-04-10 11:08] LABS: HEPATITIS B SURFACE AG Negative (Negative); Hepatitis A IgM Antibody Negative (Negative); Hepatitis B Core AB IgM Negative (Negative)
[2021-04-10 12:33] LABS: Hep C Antibodies <0.1 s/co ratio (0.0-0.9)
== END ==
PROVIDERS: PCP Internal Medicine; Referring Provider Internal Medicine; Visit Provider Internal Medicine
DX: T50.904A Poisoning by unspecified drugs, medicaments and biological substances, undetermined, initial encounter (principal)
CPT/HCPCS: 36415; 80074

== ENCOUNTER 2021-05-20 09:49 | Outpatient (RCR) | payer OTHER, SELFPAY ==
--- NOTE | 2021-05-22 15:09 | MASS.EVAL ---
Massage Therapy Evaluation: Initial Evaluation Date: 05/20/2021 SUBJECTIVE: Lauryn is a 50 year old female who was referred to the [facility] facility for a massotherapy evaluation by Dr. Pettit with the diagnosis of low backache and cervical radiculopathy. She presents today with the symptoms of pain, stiffness and tension in the neck, head, mid back, low back, and hips. Lauryn reports having a past medical history of neck and back pain and complains of radiating pain from her neck into her shoulders. She reports having minimal improvement with exercise and stretching over the last few months. OBJECTIVE: Upon observation Lauryn has poor posture with her head and shoulders forward from the neutral position in sitting and standing. After examination and palpation, I found Lauryn to have high muscle tension with tenderness and myofascial restrictions in her sub occipitals, levator scapulae, trapezius, rhomboids, scalenes, and thoracic paraspinals. Her QL?s, lumbar paraspinals, piriformis, glute medius and minimus all were very tight with fascial restrictions, tender points and trigger points. The first treatment consisted of a one hour massage to her upper body with myofascial release, muscle stripping, trigger point compression techniques, and cervical manual traction. ASSESSMENT: I feel that Lauryn is a good candidate for massotherapy at this time. She had a favorable response to the first treatment with reduction in her muscle aches, pain, and tension. She also had improvement in her cervical flexibility and low back flexibility. PLAN: The plan of care was reviewed with the patient. The patient is to be seen on an as needed basis for a total of ten sessions with the recommendation of once every month for a one hour treatment.
--- NOTE | 2021-07-01 13:13 | MASS.DISCH ---
Massage Therapy Discharge Summary: discharge date 07/01/21 Lauryn was seen on May 20, 2021, with the diagnosis of neck and back pain. She was treated with one session of massage. At this time I am discharging her from our care at [facility].
== END 2021-05-20 19:00 | disposition home or self-care (01) ==
LOC: MASS 09:49
PROVIDERS: PCP Internal Medicine; Referring Provider Internal Medicine; Visit Provider Internal Medicine
DX: M54.12 Radiculopathy, cervical region (principal)
CPT/HCPCS: 97124

== ENCOUNTER 2021-10-07 21:38 | Outpatient (CLI) | payer OTHER, SELFPAY ==
[2021-10-08 08:57] LABS: Hepatitis B Surface Antibody Reactive
[2021-10-09 06:08] LABS: HEPATITIS B SURFACE AG Negative (Negative); Hepatitis A IgM Antibody Negative (Negative); Hepatitis B Core AB IgM Negative (Negative)
[2021-10-09 14:09] LABS: Hep C Antibodies 0.1 s/co ratio (0.0-0.9)
[2021-10-09 14:46] LABS: Hepatitis A AB, Total Positive (Negative)
== END 2021-10-07 23:59 | disposition home or self-care (01) ==
PROVIDERS: PCP Internal Medicine; Visit Provider Internal Medicine
DX: Z01.84 Encounter for antibody response examination (principal)
CPT/HCPCS: 36415; 80074; 86706; 86708

== ENCOUNTER 2021-10-19 15:41 | Outpatient (CLI) | payer OTHER, SELFPAY ==
[2021-10-22 12:18] LABS: Hepatitis B Core Ab Total Negative (Negative)
== END 2021-10-19 23:59 | disposition home or self-care (01) ==
LOC: LAB 15:41
PROVIDERS: PCP Internal Medicine; Visit Provider Internal Medicine
DX: Z11.59 Encounter for screening for other viral diseases (principal)
CPT/HCPCS: 36415; 86704

== ENCOUNTER → 2021-11-13 | Outpatient (CLI) | payer OTHER, SELFPAY ==
[2021-11-18 20:28] LABS: HPV APTIMA, High Risk Negative (Negative)
== END | disposition home or self-care (01) ==
LOC: LABSPEC 12:36
PROVIDERS: PCP Internal Medicine; Visit Provider Obstetrics & Gynecology
DX: Z12.4 Encounter for screening for malignant neoplasm of cervix (principal)
CPT/HCPCS: 87624; 88175; G0145

== ENCOUNTER → 2022-01-17 | Outpatient (CLI) | payer OTHER, SELFPAY ==
--- NOTE | 2022-01-17 10:10 | VDLE_ITS ---
Reason For Study: Chronic venous insufficiency RIGHT LEFT CFV is compressible, spontaneous, phasic, CFV is compressible, spontaneous, phasic, competent and demonstrates normal competent, and demonstrates normal augmentation. augmentation. FV is compressible, spontaneous, phasic, FV is compressible, spontaneous, phasic, competent and demonstrates normal competent and demonstrates normal augmentation. augmentation. POP V is compressible, spontaneous, phasic, POP V is compressible, spontaneous, phasic, competent and demonstrates normal competent and demonstrates normal augmentation. augmentation. T/P Trunk is compressible. T/P Trunk is compressible. PTV is compressible. PTV is compressible. RT PerV is compressible. LT PerV is compressible. SFJ is INCOMPETENT and measures 0.57 x 0.54 SFJ is competent and measures 0.58 x 0.60 cm. cm. GSV proximal thigh measures 0.22 x 0.21 cm. GSV proximal thigh measures 0.19 x 0.19 cm. GSV at knee measures 0.22 x 0.20 cm. GSV above knee is competent. GSV is competent throughout. GSV at knee measures 0.10 x 0.10 cm. SSV at junction is competent and measures GSV below knee is INCOMPETENT for greater 0.22 x 0.21 cm. than 0.5 seconds. SSV at junction is competent and measures 0.14 x 0.15 cm. Procedure Exam performed in department. This is a venous duplex using B-mode, color flow and spectral Doppler. VL/Venous Duplex US - Jv Extrem Interpretation Summary Deep veins of the lower extremities are bilaterally patent and compressible seg mentally. There is no evidence of deep vein thrombosis on either side. Valvular competence appears in tact within the proximal deep venous systems bilaterally. The great saphenous veins appear bila terally patent and compressible segmentally. The right sapheno-femoral junction is incompetent . T he left sapheno- femoral junction is competent . The right great saphenous vein appears competen t above the knee. The right great saphenous vein appears incompetent below the knee. The left great s aphenous vein appears segmentally competent. Small saphenous veins are patent and competent bilateral ly. Ordering Physician: Ziggy Villeda Referring Physician: Carole Pettit M.D. Performed By: Rosemary Villa RVT
== END | disposition home or self-care (01) ==
LOC: CVS 10:10
PROVIDERS: PCP Internal Medicine; Referring Provider Surgery; Visit Provider Surgery
DX: I87.2 Venous insufficiency (chronic) (peripheral) (principal)
CPT/HCPCS: 93970

== ENCOUNTER → 2022-03-04 | Outpatient (CLI) | payer OTHER, SELFPAY ==
--- NOTE | 2022-03-04 15:36 | BI_ITS ---
MAMMOGRAPHY - BILATERAL SCREENING REASON FOR EXAM: Female, 51 years old. Routine annual screening examination. PERTINENT HISTORY: Mother with breast cancer. Aunts with breast cancer. TECHNIQUE: Digital bilateral breast josue (3D mammographic acquisition) in the CC and MLO projections. 2-D mediolateral oblique (MLO) and craniocaudad (CC) views of both breasts were obtained. CAD: Full Field Digital Mammography with Computer Added Detection was performed. COMPARISON: Comparison is made with prior examination dated 02/12/2021 and 01/23/2020. FINDINGS: Breast Composition: The breasts are heterogeneously dense, which may obscure small masses. There are no dominant masses or suspicious calcifications. Stable small benign-appearing bilateral axillary lymph nodes. No other significant abnormalities are identified. There has been no significant change since the prior study. BI/SCRN MAMM (CAD)W/JOSUE BILAT IMPRESSION: Stable bilateral screening mammogram. Yearly follow-up mammogram recommended. (A) ASSESSMENT CATEGORY: BIRADS Category 2: Benign. A letter regarding these results will be sent to the patient by the facility within 30 days. Approximately 10% of breast cancers are not detected by mammography. A normal mammogram should not delay biopsy of a clinically suspicious abnormality. [id number] Electronically Signed: Alexei Joya MD at 7:59 EDT ,
== END | disposition home or self-care (01) ==
LOC: OPBI 15:34
PROVIDERS: PCP Internal Medicine; Visit Provider Internal Medicine
DX: Z12.31 Encounter for screening mammogram for malignant neoplasm of breast (principal)
CPT/HCPCS: 77063; 77067

== ENCOUNTER → 2022-07-02 | Outpatient (CLI) | payer OTHER, SELFPAY ==
[2022-07-05 14:09] LABS: Lyme IgG P18 Ab Absent (.); Lyme IgG P23 Ab Absent (.); Lyme IgG P28 Ab Absent (.); Lyme IgG P30 Ab Absent (.); Lyme IgG P39 Ab Absent (.); Lyme IgG P41 Ab Present (.); Lyme IgG P45 Ab Absent (.); Lyme IgG P58 Ab Absent (.); Lyme IgG P66 Ab Absent (.); Lyme IgG P93 Ab Absent (.); Lyme IgM P23 Ab Absent (.); Lyme IgM P39 Ab Absent (.); Lyme IgM P41 Ab Absent (.)
[2022-07-05 20:13] LABS: Lyme IgG WB Interpretation Negative (.); Lyme IgM WB Interpretation Negative (.)
== END | disposition home or self-care (01) ==
LOC: LAB 12:08
PROVIDERS: PCP Internal Medicine; Referring Provider Internal Medicine; Visit Provider Internal Medicine
DX: Z91.89 Other specified personal risk factors, not elsewhere classified (principal)
CPT/HCPCS: 36415; 86617

== ENCOUNTER → 2022-12-19 | Outpatient (CLI) | payer OTHER, SELFPAY ==
[2022-12-24 17:07] LABS: HPV APTIMA, High Risk Negative (Negative)
== END | disposition home or self-care (01) ==
PROVIDERS: PCP Internal Medicine; Visit Provider Obstetrics & Gynecology
DX: Z12.4 Encounter for screening for malignant neoplasm of cervix (principal)
CPT/HCPCS: 87624; 88175; G0145

== ENCOUNTER → 2023-01-27 | Outpatient (CLI) | payer OTHER, SELFPAY ==
--- NOTE | 2023-01-27 11:09 | RAD_ITS ---
INDICATION: ELBOW PAIN EXAMINATION/TECHNIQUE: X-RAY - RIGHT XR Elbow Min 3 Views COMPARISON: 3 plain film views of the right elbow October 19, 2018; MRI right elbow April 27, 2019 FINDINGS: SOFT TISSUES: Small, oblong soft tissue calcification is seen adjacent to the lateral epicondyles of the humerus, correlating to the site of lateral epicondylitis and partial tear of the common extensor tendon seen by MRI. No soft tissue swelling or gas. No radiopaque foreign body. BONES/JOINTS: There is no displacement of the anterior or posterior fat pads. No acute fracture or subluxation. Normal alignment. Preservation of the joint space. No sclerotic or destructive changes observed. RAD/Elbow min 3 Views IMPRESSION: Chronic soft tissue calcification adjacent to the lateral epicondyle of the right humerus, roughly unchanged and correlating to the area of lateral epicondylitis with partial tear of the common extensor tendon seen on MRI April 27, 2019. No acute osseous abnormality. Electronically Signed: Gabriel Parker MD at 11:37 EDT Reading Location ID and State: [id number] / Unknown , Service support ,
--- NOTE | 2023-01-27 11:09 | RAD_ITS ---
INDICATION: PAIN EXAMINATION/TECHNIQUE: X-RAY - LEFT XR Elbow Min 3 Views COMPARISON: None. FINDINGS: SOFT TISSUES: Subcentimeter oblong calcification noted in the superficial/subcutaneous medial soft tissues at the level of the distal humeral metadiaphysis. No soft tissue swelling or gas. No radiopaque foreign body. BONES/JOINTS: There is no displacement of the anterior or posterior fat pads. No acute fracture or subluxation. Normal alignment. Preservation of the joint space. No sclerotic or destructive changes observed. RAD/Elbow min 3 Views IMPRESSION: No acute osseous abnormality of the left elbow. Subcentimeter subcutaneous calcification incidentally noted in the medial soft tissues. Electronically Signed: Gabriel Parker MD at 11:38 EDT Reading Location ID and State: [id number] / Unknown , Service support ,
== END | disposition home or self-care (01) ==
LOC: MTRAD 11:06
PROVIDERS: PCP Internal Medicine; Referring Provider Orthopaedic Surgery Sports Medicine; Visit Provider Orthopaedic Surgery Sports Medicine
DX: M25.522 Pain in left elbow (principal)
CPT/HCPCS: 73080

== ENCOUNTER → 2023-03-10 | Outpatient (CLI) | payer OTHER, SELFPAY ==
--- NOTE | 2023-03-10 08:57 | BI_ITS ---
MAMMOGRAPHY - BILATERAL SCREENING REASON FOR EXAM: Female, 52 years old. Routine annual screening examination. PERTINENT HISTORY: Mother with breast cancer. Aunts with breast cancer. TECHNIQUE: Digital bilateral breast josue (3D mammographic acquisition) in the CC and MLO projections. 2-D mediolateral oblique (MLO) and craniocaudad (CC) views of both breasts were obtained. CAD: Full Field Digital Mammography with Computer Added Detection was performed. COMPARISON: Comparison is made with prior study dated March 04, 2022 and February 12, 2021. FINDINGS: Breast Composition: The breasts are heterogeneously dense, which may obscure small masses. There are no dominant masses or suspicious calcifications. Stable small benign-appearing bilateral axillary lymph nodes. No other significant abnormalities are identified. There has been no significant change since the prior study. BI/SCRN MAMM (CAD)W/JOSUE BILAT IMPRESSION: Stable bilateral screening mammogram. Yearly follow-up mammogram recommended. (A) ASSESSMENT CATEGORY: BIRADS Category 2: Benign. A letter regarding these results will be sent to the patient by the facility within 30 days. Approximately 10% of breast cancers are not detected by mammography. A normal mammogram should not delay biopsy of a clinically suspicious abnormality. [id number] Electronically Signed: Alexei Joya MD at 8:57 EDT ,
== END | disposition home or self-care (01) ==
LOC: OPBI 08:55
PROVIDERS: PCP Internal Medicine; Referring Provider Obstetrics & Gynecology; Visit Provider Obstetrics & Gynecology
DX: Z12.31 Encounter for screening mammogram for malignant neoplasm of breast (principal); Z80.3 Family history of malignant neoplasm of breast
CPT/HCPCS: 77063; 77067

== ENCOUNTER → 2023-03-24 | Outpatient (CLI) | payer OTHER, SELFPAY ==
--- NOTE | 2023-03-24 10:00 | RAD_ITS ---
STUDY: X-RAY - LUMBAR SPINE REASON FOR EXAM: Female, 52 years old. Back pain TECHNIQUE: 4 view(s) of the lumbar spine were obtained. COMPARISON: None FINDINGS: There is an exaggerated lumbar lordosis. There is no substantial scoliosis. Grade 1-2 anterior listhesis of L5 on S1 due to spondylolysis of the pars interarticularis of the L5 vertebrae. Normal vertebral bodies and endplates. Normal disc space heights. The soft tissue structures are unremarkable. RAD/L/S Spine Min 4 Views IMPRESSION: Grade 1-2 anterolisthesis of L5 on S1 due to spondylolysis of the pars interarticularis of the L5 vertebrae. Electronically Signed: Alexei Joya MD at 13:27 EDT ,
--- NOTE | 2023-03-24 11:27 | RAD_ITS ---
STUDY: X-RAY - LUMBAR SPINE REASON FOR EXAM: Female, 52 years old. SUSPECT PARS FX TECHNIQUE: Lateral flexion extension view(s) of the lumbar spine were obtained. COMPARISON: None FINDINGS: Normal lumbar lordosis. There is no substantial scoliosis. There is a grade 2 anterior listhesis of L5 on S1 due to spondylolysis of the pars interarticularis of the L5 vertebrae. This is accentuated during the extension maneuver. Normal vertebral bodies and endplates. Normal disc space heights. The soft tissue structures are unremarkable. RAD/L/S Spine Bending Flex/Ext IMPRESSION: Grade 2 anterolisthesis of L5 on S1 due to spondylolysis of the pars interarticularis of the L5 vertebrae. The listhesis is accentuated during the flexion maneuver. Electronically Signed: Alexei Joya MD at 13:23 EDT ,
== END | disposition home or self-care (01) ==
LOC: MTRAD 10:00
PROVIDERS: PCP Internal Medicine; Visit Provider Chiropractor
DX: M99.03 Segmental and somatic dysfunction of lumbar region (principal); M54.16 Radiculopathy, lumbar region
CPT/HCPCS: 72110; 72120

== ENCOUNTER → 2023-04-08 | Outpatient (CLI) | payer OTHER, SELFPAY ==
[2023-04-08 15:54] LABS: Absolute Lymphocyte Count 2.35 X10^3/uL (0.83-4.51); Basophil# 0.07 X10^3/uL; Eosinophil# 0.23 X10^3/uL; Eosinophils% 3.2 % (0-5); Hematocrit 43.5 % (37-47); Hemoglobin 13.9 g/dL (12.0-15.0); Lymphocyte # 2.35 X10^3/ul (0.83-4.51); Lymphocyte % 32.5 % (19-41); Mean Corpuscular Hgb 29.9 pg (27.0-32.0); Mean Corpuscular Volume 93.5 fL (81-99); Monocyte# 0.57 X10^3/uL; Monocyte% 7.9 % (0-10); NRBC Flagged by Analyzer 0 % (0-5); Neutrophil # 3.97 X10^3/uL (2.7-7.7); Platelet Count 243 K/mm3 (150-450); RBC Distribution Width CV 13.1 % (11.6-14.6); RBC Distribution Width SD 44.8 fl (35.1-43.9); Red Blood Count 4.65 M/mm3 (4.2-5.4); White Blood Count 7.2 K/mm3 (4.4-11.0)
[2023-04-08 16:32] LABS: ALB/GLOB Ratio 1.1 RATIO (0.9-2.4); AST(SGOT) 22 U/L (15-37); Alanine Aminotransfer ALT/SGPT 36 U/L (13-56); Albumin, Serum 4.1 g/dL (3.2-5.0); Alkaline Phosphatase 69 U/L (45-117); Anion Gap 4 (5-15); BUN 12 mg/dL (7-18); BUN/Creat Ratio 17.2 RATIO (10-20); Calcium,Total 9.2 mg/dL (8.5-10.1); Chloride 105 mmol/L (98-107); EST Glomerular Filtration Rate 93 mL/min (>60); Est Glom Filt Rate - Afr Amer 113 mL/min (>60); Globulin 3.8 g/dL (2.2-4.2); Glucose 92 mg/dL (74-106); Potassium 3.8 mmol/L (3.5-5.1); Protein, Total 7.9 g/dL (6.4-8.2); Sodium Level 138 mmol/L (136-145); Thyroid Stim Hormone (TSH) 2.32 uIU/mL (0.358-3.74)
== END | disposition home or self-care (01) ==
LOC: LAB 15:12
PROVIDERS: PCP Internal Medicine; Referring Provider Internal Medicine; Visit Provider Internal Medicine
DX: R00.2 Palpitations (principal)
CPT/HCPCS: 36415; 80053; 84443; 85025

== ENCOUNTER → 2023-04-21 | Outpatient (CLI) | payer OTHER, SELFPAY ==
--- NOTE | 2023-04-21 11:07 | ECHOD_ITS ---
Reason For Study: PALPITATIONS Procedure This was a 2D Doppler, Color Flow transthoracic echocardiogram. Exam performed in department. Left Ventricle Normal LV size. Left ventricular systolic function is normal. The estimated ejection fraction is 55 %. Normal diastology for age. No regional wall motion abnormalities noted. Right Ventricle Normal RV size. Normal systolic function. Atria Normal left atrium. Normal right atrium. Mitral Valve Normal mitral valve. Tricuspid Valve Normal tricuspid valve. Mild tricuspid valve insufficiency. Aortic Valve Normal aortic valve. Trisinus/trileaflet aortic valve. Pulmonic Valve Normal pulmonic valve. Great Vessels Normal aortic root. The pulmonary artery is normal size. Normal inferior vena cava. Pericardium/Pleural No pericardial effusion. MMode/2D Measurements & Calculations LVIDd: 4.5 cm IVSd: 0.74 cm Ao root diam: 2.8 cm LVIDs: 2.8 cm LVPWd: 0.91 cm RVDd: 3.4 cm FS: 37.8 % LAV(MOD-bp): 42.6 ml LVAd ap4: 26.6 cm2 SV(MOD-sp4): 49.5 ml LAV(MOD-bp) Indexed: 24.4 ml/m2 LVLd ap4: 7.8 cm LAV(MOD-sp2): 42.1 ml EDV(MOD-sp4): 75.6 ml LAV(MOD-sp4): 39.6 ml EDV(sp4-el): 76.4 ml LVAs ap4: 13.9 cm2 LVLs ap4: 6.2 cm ESV(MOD-sp4): 26.0 ml ESV(sp4-el): 26.3 ml EF(MOD-sp4): 65.5 % EF(sp4-el): 65.6 % SV(sp4-el): 50.2 ml LA A4 area: 15.9 cm2 LA dimension(2D): 3.5 cm RA A4 area: 15.1 cm2 Time Measurements MV dec time: 0.21 sec Doppler Measurements & Calculations MV E max darwin: 92.1 cm/sec Lat Peak E' Darwin: 13.9 cm/sec Med Peak E' Darwin: 12.4 cm/sec MV A max darwin: 84.1 cm/sec E/E' lat: 6.6 E/E' med: 7.4 MV E/A: 1.1 Ao V2 max: 121.3 cm/sec LV V1 max: 120.2 cm/sec PA V2 max: 119.7 cm/sec Ao max P.9 mmHg LV V1 max P.8 mmHg TR max darwin: 260.0 cm/sec TR max P.0 mmHg ECHO/Echo Complete Interpretation Summary Normal LV size. Left ventricular systolic function is normal. The estimated ejection fraction is 55 %. Mild tricuspid valve insufficiency. Ordering Physician: Carole Pettit Referring Physician: Carole Pettit Performed By: Rama Gaona RDCS
== END | disposition home or self-care (01) ==
LOC: CVS 11:06
PROVIDERS: PCP Internal Medicine; Referring Provider Internal Medicine; Visit Provider Internal Medicine
DX: R07.9 Chest pain, unspecified (principal); R00.2 Palpitations
CPT/HCPCS: 93225; 93226; 93306

== ENCOUNTER → 2023-06-20 | Outpatient (CLI) | payer OTHER, SELFPAY ==
--- NOTE | 2023-06-20 09:24 | MRI_ITS ---
HISTORY: PAIN IN LEGS AND BUTTOCKS TECHNIQUE: Multiplanar and multisequence MR images of the lumbar spine were obtained without intravenous contrast. 120 images. COMPARISON: None. FINDINGS: VERTEBRAE: Vertebral body heights maintained. Mild degenerative bone marrow endplate changes of L4-5 and L5-S1. L5 spondylolysis. ALIGNMENT: 4 mm L5-S1 anterolisthesis. CONUS: Normal morphology and position of the conus medullaris at T12. INTERVERTEBRAL DISCS: T12-L1: No significant disc signal abnormality, posterior disc protrusion, central canal stenosis, or foraminal narrowing based on the sagittal images. L1-2: No significant disc signal abnormality, posterior disc protrusion, central canal stenosis, or foraminal narrowing. L2-3: No significant disc signal abnormality, posterior disc protrusion, central canal stenosis, or foraminal narrowing. L3-4: Mild left foraminal disc protrusion with annular fissure and mild facet arthropathy resulting in no significant central canal stenosis, mild left foraminal narrowing, and mild abutment of the left L3 nerve root. L4-5: Minimal posterior disc bulge osteophyte complex with mild facet arthropathy. No significant central canal stenosis. Mild bilateral foraminal narrowing. L5-S1: Mild disc bulge with facet arthropathy resulting in moderate right foraminal narrowing with right L5 nerve root impingement, mild left foraminal narrowing with left L5 nerve root abutment, and no significant central canal stenosis, SOFT TISSUES: No paraspinal fluid collection. MRI/Spine Lumbar (Routine) IMPRESSION: L5 spondylolysis with grade 1 spondylolisthesis. Mild L5-S1 spondylosis resulting in moderate right foraminal narrowing with nerve root impingement and mild left foraminal narrowing with nerve root abutment. Mild degenerative disc and facet disease at L4-5 resulting in mild bilateral foraminal narrowing. Mild left foraminal disc protrusion at L3-4 resulting in mild left foraminal narrowing with left nerve root abutment. No significant lumbar spinal canal stenosis. Electronically Signed: Riddhi Wheeler MD at 10:26 EST ,
== END | disposition home or self-care (01) ==
LOC: MRI 09:14
PROVIDERS: PCP Internal Medicine; Referring Provider Anesthesiology; Visit Provider Anesthesiology
DX: M54.17 Radiculopathy, lumbosacral region (principal); M43.00 Spondylolysis, site unspecified
CPT/HCPCS: 72148

== ENCOUNTER → 2023-09-07 | Outpatient (CLI) | payer OTHER, SELFPAY ==
--- NOTE | 2023-09-07 16:12 | RAD_ITS ---
STUDY: X-RAY - LUMBAR SPINE REASON FOR EXAM: Female, 53 years old. Pain -- Lateral lumbar x-ray laying down TECHNIQUE: Single lateral view(s) of the lumbar spine were obtained. COMPARISON: None FINDINGS: Normal lumbar lordosis. There is no substantial scoliosis. There is a normal alignment of the vertebrae. Normal vertebral bodies and endplates. Mild degree of disc space narrowing and degeneration at the L5-S1 level. Grade 2 anterior listhesis of L5 on S1 due to spondylolysis of the pars interarticularis of the L5 vertebrae. The soft tissue structures are unremarkable. RAD/Spine 1 View Any Level IMPRESSION: Grade 2 anterolisthesis of L5 on S1 due to spondylolysis of the pars interarticularis at the L5 vertebrae. Electronically Signed: Alexei Joya MD at 19:36 EDT ,
== END | disposition home or self-care (01) ==
PROVIDERS: PCP Internal Medicine; Referring Provider Orthopaedic Surgery; Visit Provider Orthopaedic Surgery
DX: M43.10 Spondylolisthesis, site unspecified (principal)
CPT/HCPCS: 72020

== ENCOUNTER → 2023-09-16 | Outpatient (CLI) | payer OTHER, SELFPAY ==
--- NOTE | 2023-09-16 15:08 | NEURO ---
NCS and/or EMG Patient Report Ordering Doctor: Roel Solano DATE OF SERVICE: 09/16/23 Lauryn presents electrodiagnostic testing of the right and left lower limb. She has lower back pain with radiation into primarily the right leg. She has intermittent pain in the left foot. Electrodiagnostic findings: Right peroneal motor nerve demonstrates normal distal latency with borderline reduced amplitude and normal conduction velocity. Left peroneal motor nerve demonstrates normal distal latency and amplitude with normal conduction velocity. Tibial motor response within normal limits bilaterally sensory responses are normal. Needle EMG testing was performed in the lower limbs. 1+ fibrillations were noted in the right peroneus longus, right semitendinosis and right lower lumbar paraspinals. Motor unit action potentials are of normal amplitude and duration. Electrodiagnostic assessment: This is an abnormal study in the lower limbs 1. Electrodiagnostic findings suggestive of acute right-sided L5 radiculopathy. 2. Electrodiagnostic findings are suggestive of a right peroneal neuropathy, with evidence of axonal loss. There is a nearly 75% drop in amplitude in comparison to the left side. There is no evidence of conduction block at the fibular head. Multi Select Codes Neurology Neurology Interp Codes: 60483-28 Musc test done w/n test comp (interp) (2) and 43324-07 Nrv cndj test 9-10 studies (interp)
== END | disposition home or self-care (01) ==
PROVIDERS: PCP Internal Medicine; Referring Provider Orthopaedic Surgery; Visit Provider Orthopaedic Surgery
DX: M54.16 Radiculopathy, lumbar region (principal)
CPT/HCPCS: 95886; 95911

== ENCOUNTER → 2023-10-05 | Outpatient (CLI) | payer OTHER, SELFPAY ==
--- NOTE | 2023-10-05 13:18 | CT_ITS ---
EXAM: CT LUMBAR SPINE WITHOUT INTRAVENOUS CONTRAST CLINICAL INDICATION: RADICULOPATHY OF LUMBAR REGION TECHNIQUE: Helically acquired images were obtained of the lumbar spine without intravenous contrast. 2D reformats were reviewed. This CT exam was performed using one or more of the following dose reduction techniques: automated exposure control, adjustment of the mA and/or kV according to patient size, and/or use of iterative reconstruction technique. COMPARISON: No relevant prior studies available. FINDINGS: VERTEBRAE: Bilateral L5 spondylolysis noted with grade 1 spondylolisthesis. No discrete lytic or blastic abnormality. No acute fracture. DISCS/SPINAL CANAL/NEURAL FORAMINA: Disc protrusion at L4-5 level without significant impingement on the spinal canal. No critical stenosis. VASCULATURE: Visualized abdominal aorta is not dilated. LYMPH NODES: Normal. No retroperitoneal adenopathy. KIDNEYS AND URETERS: Small stone noted within the upper pole left kidney and lower pole right kidney. CT/Spine Lumbar without Contrast IMPRESSION: 1. L4-5 disc protrusion without significant impingement on the spinal canal. 2. L5 spondylolysis with grade 1 listhesis at L5-S1. 3. Bilateral nephrolithiasis. Electronically Signed: Arpit Kumar MD at 16:55 EDT ,
[2023-10-05 14:23] LABS: Absolute Lymphocyte Count 1.95 X10^3/uL (0.83-4.51); Absolute Neutrophil Count 1.7 X10^3/uL (2.0-7.7); Basophil# 0.05 X10^3/uL; Basophil% 1.1 % (0-1); Eosinophil# 0.32 X10^3/uL; Eosinophils% 7.1 % (0-5); Hematocrit 40.7 % (37-47); Hemoglobin 13.1 g/dL (12.0-15.0); Lymphocyte # 1.95 X10^3/ul (0.83-4.51); Lymphocyte % 43.4 % (19-41); Mean Corp Hgb Conc 32.2 g/dL (32-36); Mean Corpuscular Hgb 29.7 pg (27.0-32.0); Mean Corpuscular Volume 92.3 fL (81-99); Mean Platelet Vol. 10.3 fl (6.2-12.0); Monocyte# 0.46 X10^3/uL; Monocyte% 10.2 % (0-10); NRBC Flagged by Analyzer 0 % (0-5); Platelet Count 209 K/mm3 (150-450); RBC Distribution Width CV 12.8 % (11.6-14.6); RBC Distribution Width SD 43.6 fl (35.1-43.9); Red Blood Count 4.41 M/mm3 (4.2-5.4); White Blood Count 4.5 K/mm3 (4.4-11.0)
[2023-10-05 14:51] LABS: Ferritin 147 ng/mL (8-252); Iron 98 ug/dL (50-170); Iron Binding Capacity,Total 279 ug/dL (250-450); PERCENT IRON SATURATION 35.1 % (15.0-55.0)
== END | disposition home or self-care (01) ==
PROVIDERS: PCP Internal Medicine
DX: Z01.818 Encounter for other preprocedural examination (principal); D50.9 Iron deficiency anemia, unspecified; M54.16 Radiculopathy, lumbar region
CPT/HCPCS: 36415; 72131; 82728; 83540; 83550; 85025

== ENCOUNTER → 2024-02-09 | Outpatient (CLI) | payer OTHER, SELFPAY ==
[2024-02-10 13:08] LABS: HPV APTIMA, High Risk Negative (Negative)
== END | disposition home or self-care (01) ==
LOC: LABSPEC 02-11 11:23
PROVIDERS: PCP Internal Medicine; Visit Provider Obstetrics & Gynecology
DX: Z12.4 Encounter for screening for malignant neoplasm of cervix (principal)
CPT/HCPCS: 87624; 88175; G0145

== ENCOUNTER 2024-03-04 17:03 | Outpatient (CLI) | payer OTHER, SELFPAY ==
--- NOTE | 2024-03-04 | LES_PTH ---
PATIENT: JESUS UMANZOR [id number] AGE/SX: 53/F ROOM: RE03/04/[address]: Dr. Latia Roque DO : 1970 BED: DIS: 03/04/2024 SPEC #: [id number] RECD: 03/04/24 17:01 STATUS: RAFFAELE BETHANY #: [id number] GAGE: 03/04/24 00:[address]: Latia Roque DEPT: SURGICAL PATHOLOGY RECD BY: Andrew Land ENTERED: 03/07/24 09:17 SP TYPE: Lesion OTHR DR: Dr. Carole Pettit DO Tissues: Skin of vulva Procedures: Surgery Specimen Level IV HEADER OPERATION: Vulvar biopsy PRE-OP DIAGNOSIS: Vulvar lesion TISSUE SUBMITTED: Perineal body MICROSCOPIC DIAGNOSIS Perineal body, biopsy: Benign fibroepithelial polypoid lesion. Chronic inflammation. See comment. JAMISON/ 03/08/2024 COMMENT Immunohistochemistry ([id number]) for surrogate HPV marker (p16) supports the above diagnosis. There is no evidence of malignancy. Case has been reviewed in consultation with Dr. Granado who concurs with the above diagnosis. IDC:SIMÓN MICROSCOPIC DESCRIPTION Slides are reviewed. GROSS DESCRIPTION Received is one container labeled with the patient's name and not further designated. The specimen consists of a piece of martinez-brown skin measuring 0.3 x 0.3 x 0.1cm. The entire specimen is submitted in one cassette. 03/07/2024 TC:3 CPT:95294
--- NOTE | 2024-03-04 | IMM_PTH ---
PATIENT: JESUS UMANZOR LOC: [facility] U#:[id number] AGE/SX: 53/F ROOM: RE03/04/[address]: Dr. Latia Roque DO : 1970 BED: DIS: 03/04/2024 SPEC #: [id number] RECD: 03/08/24 13:19 STATUS: RAFFAELE REQ #: [id number] GAGE: 03/04/24 00:[address]: Latia Roque DEPT: IMMUNOHISTOCHEMISTRY RECD BY: Rell Fang ENTERED: 03/08/24 13:19 SP TYPE: IMMUNO OTHR DR: Dr. Carole Pettit DO Tissues: Skin of vulva Procedures: p16 (initial) KI-67 (add) PHYSICIAN & INSTITUTION [place] [id number] SPECIMEN INFORMATION: Tissue Source: Perineal body Clinical Info: Vulvar lesion Specimen Number: [id number] CPT code: 59106,96903 METHODOLOGY: Deparaffinized sections of prefer/formalin-fixed tissue or PAP/DQ stained slides are incubated with monoclonal/polyclonal antibodies/oligonucleotide probes. Localization is made via biotin free immunoperoxidase method. Appropriate controls are performed and reacted as expected. Results on target cell population are indicated in the following table: RESULTS: ANTIBODY / CLONE RESULT P16 (E6H4) negative Ki-67 (30-9) positive, low These tests were developed and their performance characteristics determined by [facility]. They may not have been cleared or approved by the U.S. Food and Drug Administration. The FDA has determined that such clearance or approval is not necessary. The above immunohistochemical/dualISH markers are ordered and reviewed by the Pathologist. INTERPRETATION: Perineal body, biopsy: No evidence of dysplasia. AM 03/09/2024
== END 2024-03-04 23:59 | disposition home or self-care (01) ==
LOC: LABSPEC 17:03
PROVIDERS: PCP Internal Medicine; Visit Provider Obstetrics & Gynecology
DX: N90.89 Other specified noninflammatory disorders of vulva and perineum (principal)
CPT/HCPCS: 88305; 88341; 88342

== ENCOUNTER → 2024-03-08 | Outpatient (CLI) | payer OTHER, SELFPAY ==
--- NOTE | 2024-03-08 15:40 | BD_ITS ---
STUDY: DUAL ENERGY X-RAY ABSORPTIOMETRY / DXA REASON FOR EXAM: Female, 53 years old. [id number] TECHNIQUE: Bone Mineral Density (BMD) measurements of lumbar spine and bilateral hips were obtained. COMPARISON: None. FINDINGS: Lumbar Spine (L1-L4): g/cm2 (0.965) / T-score (-0.5) / Z-score (0.6) Findings are suggestive of normal bone density with a low fracture risk. Left Femur Total: g/cm2 (0.800) / T-score (-1.2) / Z-score (-0.5) Left Femoral Neck: g/cm2 (0.641) / T-score (-1.9) / Z-score (-0.8) Right Femur Total: g/cm2 (0.819) / T-score (-1.0) / Z-score (-0.3) Right Femoral Neck: g/cm2 (0.669) / T-score (-1.6) / Z-score (-0.5) BD/Dexa Bone Density Study IMPRESSION: The patient is considered osteopenic as outlined below according to World Javy Organization (WHO) criteria with a moderate fracture risk. Reference Information: The T-score is the number of standard deviations above or below the standard which is normal for young adults at their peak bone mineral density. The World Health Organization (WHO) interprets the T-scores as follows: Above -1 Normal bone density Between -1 and -2.5 Osteopenia Equal to / or below -2.5 Osteoporosis As a practical clinical guideline, osteopenia may be graded as follows: Mild -1 through -1.5 Moderate -1.6 through -2.0 Severe -2.1 through -2.4 The Z-score is the number of standard deviations above or below age-matched controls. A Z-score of less than -1.5 would be considered abnormal. References: 1. NIH Osteoporosis and Related Bone Diseases www osteo.org 2. International Society for Clinical Densitometry www iscd.org 3. National Osteoporosis Foundation www nof.org Electronically Signed: Alexei Joya MD at 10:15 EDT ,
== END | disposition home or self-care (01) ==
LOC: OPBD 15:37
PROVIDERS: PCP Internal Medicine; Referring Provider Internal Medicine; Visit Provider Internal Medicine
DX: Z78.0 Asymptomatic menopausal state (principal)
CPT/HCPCS: 77080

== ENCOUNTER 2024-03-16 15:00 | Outpatient (RCR) | payer OTHER, SELFPAY ==
--- NOTE | 2024-01-18 18:35 | HP.PTEVAL ---
Patient's Visit Information Visit Information Visit Information: JESUS UMANZOR is a 53 year old F referred to Physical Therapy by RICCARDO FOSTER with a diagnosis of S/P LUMBAR SPINAL FUSION. Date of Evaluation: 01/18/24 Physical Therapist: Akash Ugalde, PT, Cert MDT, OCS Visit Plan Frequency: 2x /Week Duration: 4 Weeks Plan: S/P LUMBAR SPINAL FUSION November PT INTERVENTION POSTURAL EX'S ,LE FLEXABILITY ,DLS ,RLE STRENGTHENING , AND ACTIVITY MODIFICATION Subjective Subjective: This 53 y/o female presents to physical therapy with s/p lumbar spinal fusion L5-S1 cage, bone graft on November [address] Gtz at [facility] was d/c December 02 and drain tube and medication. Patient d/c to home no device for gait or brace . Precaution no BLT initially 10# but currently 15# and increase as ebony. Patient had lumbar spondylolisthesis and h/o pars fracture from MRI. Patient currently continues to have pain right lateral leg to foot. Medication: lyrica. muscle relaxer at night . Aggravating factors wear shoe ,walking 20 min > ,standing described as burning, and sitting ,driving. Patient symptoms better medication. Patient has paresthesia/tingling lateral and burning lower leg foot and occasional shooting pain. Patient is unable to sleep due to pain. Coughing/sneezing -. Bowel /bladder-. Patient is off work at [employer] date Mar 02 . Patient condition affects QOL and function/gat and RTW. Patient goals to decrease pain and improve function. SOCIAL: VOCATION: Pharmacist Pain Right Lower Extremity: Pain Intensity (Out of 10): 2 Pain Intensity Range: 10 Comment: 7/10 at night Objective Objective: POSTURE: mild forward posture SKIN: incision well approximate NEURO: c/o paresthesia/tingling ,burning right lower leg to foot ,reflexes L3-4 ,L4-5 ,L5-S1 2/3 FLEXABILITY: hamstrings min tight right side GAIT: reciprocal pattern MMT: ( peak force ) quads 19.6 ,hamstrings 13.6 ,hip flexion 29.2 right ,left 4/5 LUMBAR ROM: flexion mod loss ,extension mod loss ,side glides mod loss Special Tests L/S Slump test left side: Negative L/S Slump test right side: Negative L/S Left Straight Leg Raise: Negative L/S Right Straight Leg Raise: Negative Balance/Special Test Scores Oswestry Low Back Score: 28 Goals Goal 1:: Patient to be I with HEP for lumbar Goal Time Frame: 4-6 Weeks Goal 2:: Patient to improve peak force quads/hams/hip by 5-10# strength to improve function. Goal Time Frame: 4-6 Weeks Goal 3:: Patient to improve lumbar ROM for function of recovery for job demands and put on shoes Goal Time Frame: 4-6 Weeks Goal 4:: Patient to demonstrate 50% improvement with less symptoms and improved function Goal Time Frame: 4-6 Weeks Goal 5:: Patient improve back oswestry score by 5 points to improve function and RTW. Goal Time Frame: 4-6 Weeks Rehabilitation Potential Physical Therapy Diagnosis: This patient underwent s/p lumbar spinal fusion November 29 with symptoms in lower leg ,weakness right leg ,decrease ROM and unable to RTW thus benefit from skilled PT Rehabilitation Potential: Good Anticipated Interventions Patient/Client Instruction: Educate patient on: Condition and Plan of Care For the Purpose of:: To decrease pain, To increase ROM, To improve muscle performance and motor function, To improve ability to perform ADL's, To increase tolerance to activity/condition/position, To improve ability of physical actions for home/community/work/leisure, To improve health of tissue, To decrease soft tissue restriction, To increase flexibility/ROM, To reduce risk of recurrence and To prevent re-injury Therapeutic Exercise to Include: Strength training, Endurance training, Postural training, Flexibilty training, Gait and locomotor training and Dynamic Lumbar Stabilization For the Purpose of:: To decrease pain, To increase ROM, To improve muscle performance and motor function, To improve ability to perform ADL's, To increase tolerance to activity/condition/position, To improve ability of physical actions for home/community/work/leisure, To improve health of tissue, To decrease soft tissue restriction, To increase flexibility/ROM, To prevent re-injury and To improve tolerance to ADL's Text: Thank you for the opportunity to evaluate your patient. For Medicare and Medicare HMO plans, please review the plan of care and approve it. It will need to be FAXED BACK to us at [phone] for Medicare purposes. For Medicare only, by signing this I certify the plan of care. Please let me know if there are questions or concerns regarding this plan of care. Physician Signature: Date:
--- NOTE | 2024-03-16 15:30 | HP.PTDCSUM ---
Discharge Summary D/C summary: It has been my pleasure to treat JESUS UMANZOR referred by RICCARDO FOSTER, with the diagnosis of S/P LUMBAR SPINAL FUSION for a total of 13 visit(s). Discharge Date: 03/16/24 Please see the following information for a summary of their discharge status. Subjective Subjective: Doing well working out Pain Right Lower Extremity: Pain Intensity (Out of 10): 0 Overall Improvement % Improvement: 75 Objective Objective/Function: POSTURE: mild forward posture SKIN: incision well approximate NEURO: decreasing paresthesia/tingling ,burning right lower leg to foot ,reflexes L3-4 ,L4-5 ,L5-S1 2/3 FLEXABILITY: hamstrings min tight right side GAIT: reciprocal pattern MMT: ( peak force ) quads 29.6 ,hamstrings 28.6 ,hip flexion 31.2 right ,left 4/5 LUMBAR ROM: flexion WFL loss ,extension MIN loss ,side glides min loss Goals Goal 1:: Patient to be I with HEP for lumbar Goal Progress: Goal Met Goal 2:: Patient to improve peak force quads/hams/hip by 5-10# strength to improve function. Goal Progress: Goal Met Goal 3:: Patient to improve lumbar ROM for function of recovery for job demands and put on shoes Goal Progress: Goal Met Goal 4:: Patient to demonstrate 50% improvement with less symptoms and improved function Goal Progress: Goal Met Goal 5:: Patient improve back oswestry score by 5 points to improve function and RTW. Goal Progress: Goal Met Plan Plan: D/C D/C Information Discharge Comments: HEP GYM d/c sentence: If there are questions or concerns regarding this patient's physical therapy, please feel free to call me at [phone]. Thank you for the referral of this patient. Sincerely, Akash Ugalde, PT, Cert MDT, OCS Balance/Gait/Functional tests Balance/Special Test Scores Oswestry Low Back Score: 0 Improvement % Improvement: 75
== END 2024-03-16 19:00 | disposition home or self-care (01) ==
LOC: PT 15:00
PROVIDERS: PCP Internal Medicine
DX: Z98.1 Arthrodesis status (principal); Z12.4 Encounter for screening for malignant neoplasm of cervix
CPT/HCPCS: 87624; 88175; 97110; 97162; G0145

== ENCOUNTER → 2024-03-22 | Outpatient (CLI) | payer OTHER, SELFPAY ==
--- NOTE | 2024-03-22 15:42 | BI_ITS ---
MAMMOGRAPHY - BILATERAL SCREENING REASON FOR EXAM: Female, 53 years old. Routine annual screening examination. PERTINENT HISTORY: Mother with breast cancer. Aunts with breast cancer. TECHNIQUE: Digital bilateral breast josue (3D mammographic acquisition) in the CC and MLO projections. 2-D mediolateral oblique (MLO) and craniocaudad (CC) views of both breasts were obtained. CAD: Full Field Digital Mammography with Computer Added Detection was performed. COMPARISON: Comparison is made with prior study dated March 10, 2023 and March 04, 2022. FINDINGS: Breast Composition: The breasts are heterogeneously dense, which may obscure small masses. There are no dominant masses or suspicious calcifications. Stable small benign-appearing bilateral axillary lymph nodes. No other significant abnormalities are identified. There has been no significant change since the prior study. BI/SCRN MAMM (CAD)W/JOSUE BILAT IMPRESSION: Stable bilateral screening mammogram. Yearly follow-up mammogram recommended. (A) ASSESSMENT CATEGORY: BIRADS Category 2: Benign. A letter regarding these results will be sent to the patient by the facility within 30 days. Approximately 10% of breast cancers are not detected by mammography. A normal mammogram should not delay biopsy of a clinically suspicious abnormality. [id number] Electronically Signed: Alexei Joya MD at 8:25 EDT ,
== END | disposition home or self-care (01) ==
LOC: OPBI 15:31
PROVIDERS: PCP Internal Medicine; Referring Provider Obstetrics & Gynecology; Visit Provider Obstetrics & Gynecology
DX: Z12.31 Encounter for screening mammogram for malignant neoplasm of breast (principal); Z80.3 Family history of malignant neoplasm of breast
CPT/HCPCS: 77063; 77067

== ENCOUNTER → 2024-07-05 | Outpatient (CLI) | payer OTHER, SELFPAY ==
--- NOTE | 2024-07-05 11:27 | RAD_ITS ---
STUDY: X-RAY - LEFT SHOULDER REASON FOR EXAM: Female, 53 years old. pain TECHNIQUE: 4 view(s) of the shoulder. COMPARISON: None. FINDINGS: Normal glenohumeral articulation. Normal acromioclavicular joint. Normal acromion. Normal humeral head and visualized proximal humerus. The soft tissue structures are unremarkable. Normal visualized pulmonary apex. RAD/Shoulder min 2 Views IMPRESSION: Normal x-ray examination of the shoulder. Electronically Signed: Sky Truong MD at 15:26 EST ,
== END | disposition home or self-care (01) ==
LOC: MTRAD 11:27
PROVIDERS: PCP Internal Medicine; Referring Provider Orthopaedic Surgery Sports Medicine; Visit Provider Orthopaedic Surgery Sports Medicine
DX: M25.512 Pain in left shoulder (principal)
CPT/HCPCS: 73030

== ENCOUNTER → 2024-09-09 | Outpatient (CLI) | payer OTHER, SELFPAY ==
[2024-09-09 11:02] LABS: SERUM TEARS COLLECTION SPECIMEN PROCESSED
== END | disposition home or self-care (01) ==
PROVIDERS: PCP Internal Medicine; Referring Provider Ophthalmology; Visit Provider Ophthalmology
DX: H04.123 Dry eye syndrome of bilateral lacrimal glands (principal)

== ENCOUNTER 2024-09-27 11:17 | Day surgery (SDC) | payer OTHER, SELFPAY ==
--- NOTE | 2024-09-26 16:12 | PAT.ANESEVAL ---
Pre-Assessment Diagnosis/Proposed Procedure Planned Operative Procedure(s): CSCOPE Anesthesia History Anesthesia History - tool and die maker level five: Anesthesia History - tool and die maker level five Hx Hospitalization No 09/26/24 10:49 Any Problems With Anesthesia Yes: PONV 09/26/24 10:49 Cholinesterase deficiency No 09/26/24 10:49 You/Your Family Experience No 09/26/24 10:49 fever (hyperthermia) with Relationship Recent Exposure to Contagious No 07/01/24 13:36 Disease Does patient have nerve No 09/26/24 10:49 stimulator Patient instructed to have device shut off --Does patient have Pacemaker or ICD? When Was Last Pacemaker Check QUESTION #4 FULL TEXT: You/Your Family Experience fever (hyperthermia) with Anesthesia Last Oral Intake Last Oral intake: Last Oral Intake NPO since Meds taken in AM with sips of water? Meds patient instructed to take am of surgery PONV PONV - tool and die maker level five: PONV - tool and die maker level five Female Yes 09/26/24 10:49 HX of Motion Sickness Yes 09/26/24 10:49 HX of N/V After Surgery Yes 09/26/24 10:49 Non-Smoker Yes 09/26/24 10:49 Duration of Surgery greater No 09/26/24 10:49 than 60 minutes Number of Risk Factors 4 09/26/24 10:49 PONV Score Severe Risk 09/26/24 10:49 Height & Weight Height & Weight: Anesthesia: Height & Weight Height 5 ft 6 in 07/04/24 10:18 Respiratory Assessment Respiratory Assessment - tool and die maker level five: Respiratory Tract Infection Hx - tool and die maker level five Hx Respiratory Tract Infection No 09/26/24 10:49 STOP Sleep Apnea STOP Sleep Apnea - tool and die maker level five: STOP Sleep Apnea - tool and die maker level five Hx Hypertension No 09/26/24 10:49 Hx Sleep Apnea No 09/26/24 10:49 CPAP No 07/01/24 13:36 BIPAP No 07/01/24 13:36 Do you snore loudly (louder No 09/26/24 10:49 than talking or can be heard Do you often feel tired/ No 09/26/24 10:49 fatigued/ sleepy during daytime? Has anyone observed you stop No 09/26/24 10:49 breathing during sleep? STOP Results Negative 09/26/24 10:49 QUESTION #5 FULL TEXT : Do you snore loudly (louder than talking or can be heard through closed doors)? Tobacco Use History Tobacco Use History - tool and die maker level five: Tobacco Use History - tool and die maker level five Tobacco Use Smoking Status Never smoker 09/26/24 10:49 Hx Tobacco Use No 09/26/24 10:49 Years Smoking Packs Smoked per Day Smoking Cessation Date was within the last 15 years Hx Smoking Cessation Date Hx Smoking Cessation Counseling Hematologic Medial History Hematologic Hx - tool and die maker level five: Hematologic Medical Hx - training and documentation specialist Hx of Blood Transfusion No 09/26/24 10:49 Hx of Transfusion in last 3 No 09/26/24 10:49 Months Date of Last Transfusion (if within last 3 months) Ever experience any problems No 09/26/24 10:49 with transfusion(s)? Specify any problems Hx of Preganancy in last 3 N/A 09/26/24 10:49 Months Nurse Filling Out Transfusion NBUCHER 09/26/24 10:49 & Questions: Date: 09/26/24 09/26/24 10:49 Time: 10:50 09/26/24 10:49 Patient unable to answer at this time (ie. confused, unrespo /Reproduction History /Reproductive History - tool and die maker level five: /Reproductive Hx- tool and die maker level five Hx Now No 09/26/24 10:49 Gestational Age (in weeks): EDC: Hx Hx Para Hx Section SAB No 09/26/24 10:49 [facility] Medical History (Updated 09/26/24 @ 10:54 by Clau Reyes) Wears contact lenses Cancer History of steroid therapy Arthritis Non-smoker History of Holter monitoring History of echocardiogram Left shoulder pain Family history of colon cancer in mother Pars defect with spondylolisthesis Medial epicondylitis, left elbow Medial epicondylitis, right elbow Hx of abnormal cervical Pap smear Vulvar lesion Hx of basal cell carcinoma History of squamous cell carcinoma Home Medications ?Medication ?Instructions ?Recorded ?Last Taken ?Type trazodone 50 mg tablet 50 mg PO QHS 07/27/13 Unknown History omega-3 fatty acids-fish oil 360 1 cap PO QDAY 07/04/24 Unknown History mg-1,200 mg capsule (Fish Oil) conjugated estrogens 0.625 mg/gram 0.625 mg vaginal .3XW 09/26/24 Unknown History vaginal cream (Premarin) Allergy/AdvReac Type Severity Reaction Status Date / Time morphine AdvReac Severe Vomiting Verified 09/26/24 10:47 adhesive AdvReac Rash Verified 09/26/24 10:47 band aid Allergy Mild Rash Uncoded 09/13/24 14:46 Family History Mother Diabetes Colon cancer, Onset Age: 73 Father Myocardial infarction CAD (coronary artery disease) Colon polyps Grandmother Diabetes Grandfather Colon cancer Aunt Diabetes Breast cancer Pancreatic cancer Uncle Colon cancer, Onset Age: 74 Surgical History Hx of colonoscopy Previous back surgery History of dilation and curettage History of hysteroscopy History of elbow surgery H/O atrial septal defect repair Hx of tonsillectomy Social History household members: spouse current occupational status: employed Smoking Status: Never smoker alcohol intake: current details: occasionally substance use type: does not use caffeine: Yes seatbelt use: always do you feel safe at home: Yes additional social history: -[employer] Audit: Pertinent Findings Pertinent Findings Echo (EF%) pertinent findings: April 21, 2023. Dr. Eddy. Ejection fraction is 55%. No aortic valve stenosis noted. Additional pertinent findings: Holter monitor-April 21, 2023. Predominantly normal sinus rhythm. No supraventricular runs noted. No atrial fibrillation noted. One PVC and no runs noted. Patient kept a diary with multiple symptoms of feeling palpitations but did not correlate with the scan. Recommendation Anesthesia Recommendation Anesthesia recommendation: OPTIMIZED for anesthesia
[2024-09-27] VITALS (8 sets, daily range): BP systolic 106–130; BP diastolic 65–77; PULSE 57–73; RESP 12–18; TEMP 36.4–36.6; O2SAT 98–100; BMI 22.8
--- NOTE | 2024-09-27 11:55 | PCM.PRE.AN2 ---
ASA Classification* ASA Classification ASA Classification: 2 (Had ASD repair at age 25, no cardiac issues since then. Has had normal echo since then. ) Assessment & Plan Anesthesia* Anesthesia Assessment Anesthesia Assessment: Discussed sedation and/or anesthesia options, risks, benefits, and alternatives with patient/parents/legal guardian/POA. Questions invited. The patient/parents/legal guardian/POA seems to understand and agrees to proceed with anesthesia plan. Reviewed the physical assessment, medical history, allergy history and patient home medications list prior to surgery/procedure/anesthetic and documented any changes. Performed airway and anesthesia risk assessments. Anesthesia Type Anesthesia Type: General History Source History Obtained from:: Patient and Chart Anesthesia Focused Assessment* Temperature: 97.7 F Pulse Rate: 73 Blood Pressure: 106/65 Respiratory Rate: 16 Pulse Ox: 100 Oxygen Delivery Method: Room Air Airway Assessment Mouth opens: >3 cm Mallampati Score: II Teeth Condition: Intact Neck Range of motion (ROM): Full ROM Focused Labs Anesthesia Preop lab: CBC WBC 4.7 K/mm3 (4.4-11.0) 02/13/24 11:55 02/13/24 RBC 4.43 M/mm3 (4.2-5.4) 02/13/24 11:55 02/13/24 Hgb 12.6 g/dL (12.0-15.0) 02/13/24 11:55 02/13/24 Hct 40.1 % (37-47) 02/13/24 11:55 02/13/24 Plt Count 201 K/mm3 (150-450) 02/13/24 11:55 02/13/24 CHEMISTRY Potassium 4.1 mmol/L (3.5-5.1) 02/13/24 11:55 02/13/24 Sodium 142 mmol/L (136-145) 02/13/24 11:55 02/13/24 Phosphorus 3.5 mg/dL (2.5-4.9) 02/13/24 11:55 02/13/24 BUN 14 mg/dL (7-18) 02/13/24 11:55 02/13/24 Creatinine 0.64 mg/dL (0.55-1.02) 02/13/24 11:55 02/13/24 Glucose 91 mg/dL (74-106) 02/13/24 11:55 02/13/24 TSH 2.32 uIU/mL (0.358-3.74) 04/08/23 15:15 04/08/23 COAG PT 12.8 SECONDS (11.7-14.9) 06/29/15 12:29 06/29/15 Urine Test Negative Negative 07/04/15 11:10 07/04/15 Pre-Assessment Diagnosis/Proposed Procedure Planned Operative Procedure(s): CSCOPE Anesthesia History Anesthesia History - special systems technician: Anesthesia History - special systems technician Hx Hospitalization No 09/26/24 10:49 Any Problems With Anesthesia Yes: PONV 09/26/24 10:49 Cholinesterase deficiency No 09/26/24 10:49 You/Your Family Experience No 09/26/24 10:49 fever (hyperthermia) with Relationship Recent Exposure to Contagious No 09/27/24 11:29 Disease Does patient have nerve No 09/26/24 10:49 stimulator Patient instructed to have device shut off --Does patient have Pacemaker No 09/27/24 11:29 or ICD? When Was Last Pacemaker Check QUESTION #4 FULL TEXT: You/Your Family Experience fever (hyperthermia) with Anesthesia Last Oral Intake Last Oral intake: Last Oral Intake NPO since 16:30 09/27/24 11:29 Meds taken in AM with sips of Yes 09/27/24 11:29 water? Meds patient instructed to finished prep @0815 09/27/24 11:29 take am of surgery PONV PONV - special systems technician: PONV - special systems technician Female Yes 09/26/24 10:49 HX of Motion Sickness Yes 09/26/24 10:49 HX of N/V After Surgery Yes 09/26/24 10:49 Non-Smoker Yes 09/26/24 10:49 Duration of Surgery greater No 09/26/24 10:49 than 60 minutes Number of Risk Factors 4 09/26/24 10:49 PONV Score Severe Risk 09/26/24 10:49 Height & Weight Height & Weight: Anesthesia: Height & Weight Height 5 ft 6 in 09/27/24 11:29 Weight: 64.4 kg 09/27/24 11:29 Body Mass Index (BMI) 22.8 09/27/24 11:29 Respiratory Assessment Respiratory Assessment - special systems technician: Respiratory Tract Infection Hx - special systems technician Hx Respiratory Tract Infection No 09/26/24 10:49 STOP Sleep Apnea STOP Sleep Apnea - special systems technician: STOP Sleep Apnea - special systems technician Hx Hypertension No 09/26/24 10:49 Hx Sleep Apnea No 09/26/24 10:49 CPAP No 07/01/24 13:36 BIPAP No 07/01/24 13:36 Do you snore loudly (louder No 09/26/24 10:49 than talking or can be heard Do you often feel tired/ No 09/26/24 10:49 fatigued/ sleepy during daytime? Has anyone observed you stop No 09/26/24 10:49 breathing during sleep? STOP Results Negative 09/26/24 10:49 QUESTION #5 FULL TEXT : Do you snore loudly (louder than talking or can be heard through closed doors)? Tobacco Use History Tobacco Use History - special systems technician: Tobacco Use History - special systems technician Tobacco Use Smoking Status Never smoker 09/26/24 10:49 Hx Tobacco Use No 09/26/24 10:49 Years Smoking Packs Smoked per Day Smoking Cessation Date was within the last 15 years Hx Smoking Cessation Date Hx Smoking Cessation Counseling Hematologic Medial History Hematologic Hx - special systems technician: Hematologic Medical Hx - wait staff Hx of Blood Transfusion No 09/26/24 10:49 Hx of Transfusion in last 3 No 09/26/24 10:49 Months Date of Last Transfusion (if within last 3 months) Ever experience any problems No 09/26/24 10:49 with transfusion(s)? Specify any problems Hx of Preganancy in last 3 N/A 09/26/24 10:49 Months Nurse Filling Out Transfusion NBUCHER 09/26/24 10:49 & Questions: Date: 09/26/24 09/26/24 10:49 Time: 10:50 09/26/24 10:49 Patient unable to answer at this time (ie. confused, unrespo /Reproduction History /Reproductive History - special systems technician: /Reproductive Hx- special systems technician Hx Now No 09/26/24 10:49 Gestational Age (in weeks): EDC: Hx Hx Para Hx Section SAB No 09/26/24 10:49 PFSH Medical History (Updated 09/26/24 @ 10:54 by Clau eRyes) Wears contact lenses Cancer History of steroid therapy Arthritis Non-smoker History of Holter monitoring History of echocardiogram Left shoulder pain Family history of colon cancer in mother Pars defect with spondylolisthesis Medial epicondylitis, left elbow Medial epicondylitis, right elbow Hx of abnormal cervical Pap smear Vulvar lesion Hx of basal cell carcinoma History of squamous cell carcinoma Home Medications ?Medication ?Instructions ?Recorded ?Last Taken ?Type trazodone 50 mg tablet 50 mg PO QHS 07/27/13 Unknown History omega-3 fatty acids-fish oil 360 1 cap PO QDAY 07/04/24 Unknown History mg-1,200 mg capsule (Fish Oil) conjugated estrogens 0.625 mg/gram 0.625 mg vaginal .3XW 09/26/24 Unknown History vaginal cream (Premarin) Allergy/AdvReac Type Severity Reaction Status Date / Time morphine AdvReac Severe Vomiting Verified 09/26/24 10:47 adhesive AdvReac Rash Verified 09/26/24 10:47 band aid Allergy Mild Rash Uncoded 09/13/24 14:46 Family History Mother Diabetes Colon cancer, Onset Age: 73 Father Myocardial infarction CAD (coronary artery disease) Colon polyps Grandmother Diabetes Grandfather Colon cancer Aunt Diabetes Breast cancer Pancreatic cancer Uncle Colon cancer, Onset Age: 74 Surgical History Hx of colonoscopy Previous back surgery History of dilation and curettage History of hysteroscopy History of elbow surgery H/O atrial septal defect repair Hx of tonsillectomy Social History household members: spouse current occupational status: employed Smoking Status: Never smoker alcohol intake: current details: occasionally substance use type: does not use caffeine: Yes seatbelt use: always do you feel safe at home: Yes additional social history: -Herve Review of Systems (Anesthesia) ROS Narrative System reviewed and no additional complaints, except as documented. Physical Exam Const alert, oriented x3 and average body habitus Resp normal respiratory effort, normal air movement and clear to auscultation bilaterally Cardio regular rate, regular rhythm, no murmurs and diaphoretic
--- NOTE | 2024-09-27 12:00 | COLBX_PTH ---
PATIENT: JESUS UMANZOR LOC: EN U#:[id number] AGE/SX: 54/F ROOM: RE09/27/[address]: Dr. Michael Guzman DO : 1970 BED: DIS: 09/27/2024 SPEC #: [id number] RECD: 09/28/24 09:25 STATUS: RAFFAELE REJessica #: [id number] GAGE: 09/27/24 12:[address]: Michael Guzman DEPT: SURGICAL PATHOLOGY RECD BY: Rell Fang ENTERED: 09/28/24 09:25 SP TYPE: COLON BX SONNY DR: Dr. Carole Pettit DO Tissues: A - COLON BIOPSY Procedures: Surgery Specimen Level IV HEADER OPERATION: Colonoscopy with biopsy PRE-OP DIAGNOSIS: Encounter for screening for malignant neoplasm of colon TISSUE SUBMITTED: A- Cecal polyp biopsy MICROSCOPIC DIAGNOSIS Cecal polyp, Biopsy: Colonic mucosa with slight hyperplastic features. Christiano Vu M.D., 10/03/24 MICROSCOPIC DESCRIPTION Slides are reviewed. GROSS DESCRIPTION A. Received in fixative is one container labeled with the patient's name and designated Cecal polyp biopsy. The specimen consists of one irregular fragment of light martinez soft tissue that measures 0.4 x 0.2 x 0.1 cm. The specimen is totally submitted in one cassette. 09/28/2024 CPT:86163 , TC:5
--- NOTE | 2024-09-27 13:33 | PCM.HP.STD ---
[facility] - General General Date of Admission: 09/27/24 Date of Service: 09/27/24 Chief Complaint: Screening colonoscopy HPI Narrative JESUS UMANZOR, is a 54 F who presents today for screening colonoscopy. She had a colonoscopy 2019 was normal. She is strong family history with multiple first-degree and second-degree relatives with colon cancer. She does not have any specific past medical history and does not take any scheduled medicines on a daily basis. [facility] Medical History Wears contact lenses Cancer History of steroid therapy Arthritis Non-smoker History of Holter monitoring History of echocardiogram Left shoulder pain Family history of colon cancer in mother Pars defect with spondylolisthesis Medial epicondylitis, left elbow Medial epicondylitis, right elbow Hx of abnormal cervical Pap smear Vulvar lesion Hx of basal cell carcinoma History of squamous cell carcinoma Home Medications ?Medication ?Instructions ?Recorded ?Last Taken ?Type trazodone 50 mg tablet 50 mg PO QHS 07/27/13 Unknown History omega-3 fatty acids-fish oil 360 1 cap PO QDAY 07/04/24 Unknown History mg-1,200 mg capsule (Fish Oil) conjugated estrogens 0.625 mg/gram 0.625 mg vaginal .3XW 09/26/24 Unknown History vaginal cream (Premarin) Allergy/AdvReac Type Severity Reaction Status Date / Time morphine AdvReac Severe Vomiting Verified 09/26/24 10:47 adhesive AdvReac Rash Verified 09/26/24 10:47 band aid Allergy Mild Rash Uncoded 09/13/24 14:46 Family History Mother Diabetes Colon cancer, Onset Age: 73 Father Myocardial infarction CAD (coronary artery disease) Colon polyps Grandmother Diabetes Grandfather Colon cancer Aunt Diabetes Breast cancer Pancreatic cancer Uncle Colon cancer, Onset Age: 74 Surgical History Hx of colonoscopy Previous back surgery History of dilation and curettage History of hysteroscopy History of elbow surgery H/O atrial septal defect repair Hx of tonsillectomy Social History household members: spouse current occupational status: employed Smoking Status: Never smoker alcohol intake: current details: occasionally substance use type: does not use caffeine: Yes seatbelt use: always do you feel safe at home: Yes additional social history: -Herve CARLIN Constitutional Constitutional: Denies fatigue, fever(s), poor appetite, weight gain or weight loss Gastrointestinal Gastrointestinal: Denies belching, bloating, change in bowel habits, change in stool character, chewing difficulty, coffee ground emesis, constipation, cramping, diarrhea, dyspepsia, dysphagia, early satiety, excessive flatus, fecal incontinence, heartburn, hematemesis, hematochezia, hemorrhoids, loose stools, melena, nausea, odynophagia, rectal bleeding, tenesmus, vomiting or weight changes Vital Signs Vital Signs Vital Signs: 09/27/24 11:29 09/27/24 11:29 09/27/24 11:59 Temperature 97.7 F L 97.7 F L Temperature Source Temporal Pulse Rate 73 73 Respiratory Rate 16 16 Respiratory Pattern Normal Blood Pressure 106/65 106/65 Blood Pressure Mean 78 Blood Pressure Source Monitor Blood Pressure Position Sitting Blood Pressure Location Left Arm Pulse Ox 100 100 Oxygen Delivery Method Room Air Room Air Weight Weight: 141 lb 15.643 oz Body Mass Index (BMI) 22.8 Physical Exam Const alert, oriented x3 and average body habitus Resp normal respiratory effort, normal air movement and clear to auscultation bilaterally Cardio regular rate, regular rhythm, no murmurs and diaphoretic Assessment & Plan Assessment/Plan (1) Encounter for screening for malignant neoplasm of colon: PLAN: She was explained alternatives risk and benefits including but not withstanding bleeding, infection, sepsis, perforation, need for surgery . She will have an ASA of 3
--- NOTE | 2024-09-27 14:13 | OP.COLON_ITS ---
Patient Name: Lauryn Armando Procedure Date: 09/27/2024 12:52 PM Date of : 1970 Age: 54 Procedure: Colonoscopy Indications: Screening patient at increased risk: Family history of colorectal cancer in multiple 1st-degree relatives Providers: Michael Guzman DO Referring MD: Carole Pettit Medicines: Monitored Anesthesia Care Patient Profile: This is a 54 year old female. Refer to note in patient chart for documentation of history and physical. Last Colonoscopy: several years ago. Complications: No immediate complications. Procedure: Pre-Anesthesia Assessment: - Prior to the procedure, a History and Physical was performed, and patient medications and allergies were reviewed. The patient is competent. The risks and benefits of the procedure and the sedation options and risks were discussed with the patient. All questions were answered and informed consent was obtained. Patient identification and proposed procedure were verified by the physician in the pre-procedure area. Mental Status Examination: alert and oriented. Airway Examination: normal oropharyngeal airway and neck mobility. Respiratory Examination: clear to auscultation. CV Examination: normal. Prophylactic Antibiotics: The patient does not require prophylactic antibiotics. Prior Anticoagulants: The patient has taken no anticoagulant or antiplatelet agents. ASA Grade Assessment: II - A patient with mild systemic disease. After reviewing the risks and benefits, the patient was deemed in satisfactory condition to undergo the procedure. The anesthesia plan was to use monitored anesthesia care (MAC). Immediately prior to administration of medications, the patient was re-assessed for adequacy to receive sedatives. The heart rate, respiratory rate, oxygen saturations, blood pressure, adequacy of pulmonary ventilation, and response to care were monitored throughout the procedure. The physical status of the patient was re-assessed after the procedure. After I obtained informed consent, the scope was passed under direct vision. Throughout the procedure, the patient's blood pressure, pulse, and oxygen saturations were monitored continuously. The Colonoscope was introduced through the anus and advanced to the cecum, identified by appendiceal orifice and ileocecal valve. The colonoscopy was performed without difficulty. The patient tolerated the procedure well. The quality of the bowel preparation was adequate. The ileocecal valve, appendiceal orifice, and rectum were photographed. Scope In: 1:50:05 PM Scope Withdrawal Time 0 hours 5 minutes 51 seconds Scope Out: 2:04:42 PM Total Procedure Duration Time 0 hours 14 minutes 37 seconds Findings: The perianal and digital rectal examinations were normal. A 7 mm polyp was found in the cecum. The polyp was sessile. The polyp was removed with a cold biopsy forceps. Resection and retrieval were complete. Verification of patient identification for the specimen was done. Estimated blood loss was minimal. The exam was otherwise without abnormality on direct and retroflexion views. Impression: - One 7 mm polyp in the cecum, removed with a cold biopsy forceps. Resected and retrieved. - The examination was otherwise normal on direct and retroflexion views. Recommendation: - Discharge patient to home. - Resume previous diet. - Continue present medications. - Await pathology results. - Repeat colonoscopy in 5 years for surveillance. Procedure Code(s): --- Professional --- 85980, Colonoscopy, flexible; with biopsy, single or multiple CPT copyright 2021 [employer]. All rights reserved. The codes documented in this report are preliminary and upon citrix consultant review may be revised to meet current compliance requirements. Michael Guzman DO 09/27/2024 2:13:00 PM This report has been signed electronically. Number of Addenda: 0 Note Initiated On: 09/27/2024 12:52 PM
--- NOTE | 2024-09-27 14:14 | OP.CCLET_ITS ---
09/27/2024 Carole Pettit [address] [place] [address] Re : Colonoscopy procedure for Lauryn Armando Dear Dr. Pettit This procedure was performed on Friday, September 27, 2024. My impressions and recommendations are as follows: Impressions : - One 7 mm polyp in the cecum, removed with a cold biopsy forceps. Resected and retrieved. - The examination was otherwise normal on direct and retroflexion views. Recommendations : - Discharge patient to home. - Resume previous diet. - Continue present medications. - Await pathology results. - Repeat colonoscopy in 5 years for surveillance. My findings are described in the full procedure note, which is enclosed. If I can be of further assistance, please feel free to contact me at . Sincerely, Michael Guzman, 09/27/2024 2:13:00 PM This report has been signed electronically.
--- NOTE | 2024-09-27 14:16 | PCM.POST.ANE ---
Anesthesia: Postop Eval I Current Vital Signs Temperature: 98 F Pulse Rate: 72 Blood Pressure: 124/75 Respiratory Rate: 12 Pulse Ox: 98 Oxygen Delivery Method: Room Air Assessment Airway patent: Yes Spontaneous unlabored respirations: Yes nausea: No Vomiting: No Anesthesia Complication: No Fluid Hydration Crystalloid volume administer (ml): 10 Total IV fluid infused: 10 Progress Note Anesthesia document: Postop Eval 1 completed: Yes
--- NOTE | 2024-09-27 14:26 | POSTOPAN2_ITS ---
Anesthesia Postop Eval I Sum Postop Eval Completion status Anesthesia document: Postop Eval 1 completed: Yes Anesthesia Postop Eval I Summary Anesthesia Postop Eval I Summary: Anesthesia Postop Eval I: Assessment Summary Airway patent Yes 09/27/24 14:17 [email or web address] Spontaneous unlabored Yes 09/27/24 14:17 INVENTORY [email or web address] respirations Mental status nausea No 09/27/24 14:17 INVENTORY [email or web address] Vomiting No 09/27/24 14:17 INVENTORY [email or web address] Anesthesia Postop Eval I: Fluid Summary Crystalloid volume administer 10 09/27/24 14:17 INVENTORY [email or web address] (ml) Colloids volume administered ( ml) Blood Product volume administered (ml) Total IV fluid infused 10 09/27/24 14:17 [email or web address] Anesthesia Postop Eval I: Summary Notes Anesthesia Complication No 09/27/24 14:17 INVENTORY [email or web address] Anesthesia Complication Comment: Post-operative progress note Anesthesia: Postop Eval II Evaluation Mental status: Awake Pain Level: 0 nausea: No Vomiting: No Complications Anesthesia Complication: No
--- NOTE | 2024-09-27 14:26 | PCM.POSTANE2 ---
Anesthesia Postop Eval I Sum Postop Eval Completion status Anesthesia document: Postop Eval 1 completed: Yes Anesthesia Postop Eval I Summary Anesthesia Postop Eval I Summary: Anesthesia Postop Eval I: Assessment Summary Airway patent Yes 09/27/24 14:17 SHEET ROCK [email or web address] Spontaneous unlabored Yes 09/27/24 14:17 SHEET ROCK [email or web address] respirations Mental status nausea No 09/27/24 14:17 SHEET ROCK [email or web address] Vomiting No 09/27/24 14:17 SHEET ROCK [email or web address] Anesthesia Postop Eval I: Fluid Summary Crystalloid volume administer 10 09/27/24 14:17 SHEET ROCK [email or web address] (ml) Colloids volume administered ( ml) Blood Product volume administered (ml) Total IV fluid infused 10 09/27/24 14:17 SHEET ROCK [email or web address] Anesthesia Postop Eval I: Summary Notes Anesthesia Complication No 09/27/24 14:17 SHEET ROCK [email or web address] Anesthesia Complication Comment: Post-operative progress note Anesthesia: Postop Eval II Evaluation Mental status: Awake Pain Level: 0 nausea: No Vomiting: No Complications Anesthesia Complication: No
== END 2024-09-27 14:41 | disposition home or self-care (01) ==
LOC: EN 11:19 → AC 11:20
PROVIDERS: PCP Internal Medicine; Referring Provider Internal Medicine; Visit Provider Internal Medicine Gastroenterology
PROC: 0DJD8ZZ Inspection of Lower Intestinal Tract, Via Natural or Artificial Opening Endoscopic (ICD-10-PCS; CPT 45378; principal; 2024-09-27 11:55)
DX: Z12.11 Encounter for screening for malignant neoplasm of colon (principal); D12.0 Benign neoplasm of cecum; Z79.899 Other long term (current) drug therapy; Z80.0 Family history of malignant neoplasm of digestive organs
CPT/HCPCS: 45380; 88305; A4216

== ENCOUNTER → 2025-02-06 | Outpatient (CLI) | payer OTHER, SELFPAY ==
[2025-02-09 17:08] LABS: HPV APTIMA, High Risk Negative (Negative)
== END | disposition home or self-care (01) ==
LOC: LABSPEC 16:19
PROVIDERS: PCP Internal Medicine; Visit Provider Obstetrics & Gynecology
DX: Z12.4 Encounter for screening for malignant neoplasm of cervix (principal)
CPT/HCPCS: 87624; 88175; G0145

== ENCOUNTER → 2025-04-05 | Outpatient (CLI) | payer OTHER, SELFPAY ==
--- NOTE | 2025-04-05 13:45 | BI_ITS ---
EXAM: SCRN MAMM (CAD)W/JOSUE BILAT DATE: 04/05/2025 CLINICAL HISTORY: F, Age 54 y/o , SCREEN FOR BREAST CANCER Mother with breast cancer. Aunts with breast cancer. TECHNIQUE: Procedure Code: [id number] Modality: MG Procedure: SCRN MAMM (CAD)W/JOSUE BILAT COMPARISON: Prior exam(s) dated March 23, 2024.. FINDINGS: TISSUE DENSITY: The breasts are heterogeneously dense, which may obscure small masses. Bilateral Breast Mammographic Findings: No significant masses, calcifications or other abnormalities are identified. Stable benign-appearing bilateral axillary lymph nodes. No suspicious masses, areas of developing architectural distortion, or suspicious calcifications. There has been no significant interval change. BI/SCRN MAMM (CAD)W/JOSUE BILAT IMPRESSION: Stable bilateral screening mammogram. OVERALL FINAL ASSESSMENT BI-RADS 2: BENIGN RECOMMENDATION: Routine annual follow-up in 1 Year Additional Recommendation none A letter with findings and recommendations will be mailed to the patient. Reading Location: [facility]
== END | disposition home or self-care (01) ==
LOC: OPBI 13:54
PROVIDERS: PCP Internal Medicine; Referring Provider Obstetrics & Gynecology; Visit Provider Obstetrics & Gynecology
DX: Z12.31 Encounter for screening mammogram for malignant neoplasm of breast (principal); Z80.3 Family history of malignant neoplasm of breast
CPT/HCPCS: 77063; 77067